=== PATIENT | male | born 1985 | race African-American/Black ===

== ENCOUNTER 2021-05-26 10:49 | Inpatient (IN) | payer BC ==
[2021-05-26] MEDS ORDERED: Sodium Chloride 0.9% 2.5 ML Syringe FLUSH PRN ×2 (11:11→19:05)
[2021-05-26] MEDS ORDERED: Sodium Chloride 0.9% 10 ML Syringe FLUSH PRN ×2 (11:11→19:05)
--- NOTE | 2021-05-26 11:15 | EDM.PDOC ---
ED HPI GENERAL MEDICAL PROBLEM - General Chief Complaint: Abdominal Pain Stated Complaint: STOMACH PAIN Time Seen by Provider: 05/26/21 10:51 Source of Information: Reports: Patient History Limitations: Reports: No Limitations - History of Present Illness INITIAL COMMENTS - FREE TEXT/NARRATIVE: HISTORY AND PHYSICAL: History of present illness: Patient is a 35-year-old male who presents to the ED today with concern of periumbilical abdominal pain that has been ongoing since yesterday. Patient describes it as sharp in nature and states that the pain is worse with movement and better when he sits still or lays still. Patient states that he also feels bloated and feels like he has a "balloon that is going to pop ". Patient denies any abdominal surgeries. Patient states that he does have prediabetes but he has never been diagnosed with diabetes and not on any medications. Patient denies any other health history or any other symptoms or concerns. Patient denies fever, chills, chest pain, shortness of breath, or cough. Denies headache, neck stiff ness, change in vision, syncope, or near syncope. Denies nausea, vomiting,, diarrhea, constipation, or dysuria. Has not noted any blood in urine or stool. Patient has been eating and drinking appropriately. Review of systems: As per history of present illness and below otherwise all systems reviewed and negative. Past medical history: As per history of present illness and as reviewed below otherwise noncontributory. Surgical history: As per history of present illness and as reviewed below otherwise noncontr ibutory. Social history: See social history for further information Family history: As per history of present illness and as reviewed below otherwise noncontributory. Physical exam: General: Patient is alert, oriented, and in no acute distress. Patient sitting comfortably on exam table. Vitals stable and reviewed by me HEENT: Atraumatic, normocephalic, pupils equal and reactive bilaterally, negative for conjunctival pallor or scleral icterus, mucous membranes moist, TMs normal bilaterally, throat clear, neck supple, nontender, trachea midline. No drooling or trismus noted. No meningeal signs. No hot potato voice noted. Lungs: Clear to auscultation, breath sounds equal bilaterally, chest nontender. Heart: S1S2, regular rate and rhythm without overt murmur Abdomen: Soft, nondistended, mild to moderate periumbilical tenderness without guarding, negative rebound, negative Sutherland sign. Negative for masses or hepatosplenomegaly. Negative for costovertebral tenderness. Pelvis: Stable nontender. Genitourinary: Deferred. Rectal: Deferred. Skin: Intact, warm, dry. No lesions or rashes noted. Extremities: Atraumatic, negative for cords or calf pain. Neurovascular unremarkable. Neuro: Awake, alert, oriented. Cranial nerves II through XII unremarkable. Cerebellum unremarkable. Motor and sensory unremarkable throughout. Exam nonfocal. Notes: Patient is a 35-year-old male who presents emergency room today secondary to periumbilical abdominal pain that began yesterday. Upon arrival to the ED, patient is vitally stable and well-appearing on exam but is noted to have some mild to moderate periumbilical tenderness on exam. Mild derangements of CBC and CMP unremarkable. Urinalysis clear Abdominal pelvic CT scan shows acute appendicitis. I did call and speak to the general surgeon on-call, Dr. Mott, and thoroughly discussed patient's case. She has come in to personally see and evaluate the patient. See her official consult note for further treatment and disposition specifics. Will transfer to the operating room to Dr. Mott Voices understanding and is agreeable to plan of care. Denies any further questions or concerns at this time. Diagnostics: EKG, CBC, CMP, UA, lipase, abdominal pelvic CT scan with contrast, COVID-19 Therapeutics: Patient was offered Toradol and morphine but he declines. LAZARO Hodge Impression: Acute appendicitis Plan: Transfer to the operating room to Dr. Rene, general surgery Definitive disposition and diagnosis as appropriate pending reevaluation and review of above. Abdomen Pain Score (Numeric/FACES): 5 - Related Data Allergies Allergy/AdvReac Type Severity Reaction Status Date / Time No Known Allergies Allergy Verified 05/26/21 11:06 Home Meds: Home Meds . [No Known Home Meds] 05/26/21 [History] ED ROS GENERAL - Review of Systems Review Of Systems: Comprehensive ROS is negative, except as noted in HPI. ED EXAM, GENERAL - Physical Exam Exam: See Below (see dictation) Course - Vital Signs Last Recorded V/S: Last Vital Signs Temp 97.5 F 05/26/21 11:06 Pulse 76 05/26/21 14:07 Resp 16 05/26/21 14:07 BP 127/76 05/26/21 14:07 Pulse Ox 98 05/26/21 14:07 - Orders/Labs/Meds Orders: Active Orders 24 hr Category Date Time Status Admission Status [Patient Status] [ADT] Stat ADT 05/26/21 14:28 Active EKG Documentation Completion [RC] STAT Care 05/26/21 11:12 Active Notify Provider Consults [RC] ASDIRECTED Care 05/26/21 13:56 Active Consult to Physician [CONS] Stat Cons 05/26/21 13:56 Active Lactated Ringers [Ringers, Lactated] 1,000 ml Med 05/26/21 14:00 Active IV .BOLUS Sodium Chloride 0.9% [Saline Flush] Med 05/26/21 11:11 Active 10 ml FLUSH ASDIRECTED PRN Sodium Chloride 0.9% [Saline Flush] Med 05/26/21 11:11 Active 2.5 ml FLUSH ASDIRECTED PRN Saline Lock Insert [OM.PC] Stat Oth 05/26/21 11:11 Ordered Medication Orders Lactated Ringer's (Ringers, Lactated) 1,000 mls @ 999 mls/hr IV .BOLUS ONE Stop: 05/26/21 15:00 Last Admin: 05/26/21 14:02 Dose: 999 mls/hr Documented by: [id number] Sodium Chloride (Sodium Chloride 0.9% 10 Ml Syringe) 10 ml FLUSH ASDIRECTED PRN PRN Reason: Keep Vein Open Last Admin: 05/26/21 11:40 Dose: 10 ml Documented by: [id number] Sodium Chloride (Sodium Chloride 0.9% 2.5 Ml Syringe) 2.5 ml FLUSH ASDIRECTED PRN PRN Reason: Keep Vein Open Last Admin: 05/26/21 11:40 Dose: 2.5 ml Documented by: [id number] Labs: Laboratory Tests 05/26/21 05/26/21 05/26/21 Range/Units 11:20 11:22 11:22 WBC 10.86 (4.0-11.0) K/uL RBC 5.56 (4.50-5.90) M/uL Hgb 14.1 (13.0-17.0) g/dL Hct 41.0 (38.0-50.0) % MCV 73.7 L (80.0-98.0) fL MCH 25.4 L (27.0-32.0) pg MCHC 34.4 (31.0-37.0) g/dL RDW Std Deviation 37.2 (28.0-62.0) fl RDW Coeff of Jeff 14 (11.0-15.0) % Plt Count 148 L (150-400) K/uL MPV 10.60 (7.40-12.00) fL Neut % (Auto) 69.5 (48.0-80.0) % Lymph % (Auto) 21.1 (16.0-40.0) % [place] % (Auto) 9.0 (0.0-15.0) % Eos % (Auto) 0.3 (0.0-7.0) % Baso % (Auto) 0.1 (0.0-1.5) % Neut # (Auto) 7.6 H (1.4-5.7) K/uL Lymph # (Auto) 2.3 (0.6-2.4) K/uL [place] # (Auto) 1.0 H (0.0-0.8) K/uL Eos # (Auto) 0.0 (0.0-0.7) K/uL Baso # (Auto) 0.0 (0.0-0.1) K/uL Nucleated RBC % 0.0 /100WBC Nucleated RBCs # 0 K/uL Sodium 142 (136-148) mmol/L Potassium 4.0 (3.5-5.1) mmol/L Chloride 103 (98-107) mmol/L Carbon Dioxide 27.3 (21.0-32.0) mmol/L BUN 13 (7.0-18.0) mg/dL Creatinine 1.1 (0.8-1.3) mg/dL Est Cr Clr Drug Dosing 95.86 mL/min Estimated GFR (MDRD) > 60.0 ml/min Glucose 90 (74-106) mg/dL Calcium 8.8 (8.5-10.1) mg/dL Total Bilirubin 0.6 (0.2-1.0) mg/dL AST 18 (15-37) IU/L ALT 37 (14-63) IU/L Alkaline Phosphatase 95 (46-116) U/L Total Protein 8.0 (6.4-8.2) g/dL Albumin 4.0 (3.4-5.0) g/dL Globulin 4.0 (2.6-4.0) g/dL Albumin/Globulin Ratio 1.0 (0.9-1.6) Lipase 32 L (73-393) U/L Urine Color DARK YELLOW Urine Appearance CLEAR Urine pH 6.0 (5.0-8.0) Ur Specific [place] 1.025 (1.001-1.035) Urine Protein NEGATIVE (NEGATIVE) mg/dL Urine Glucose (UA) NEGATIVE (NEGATIVE) mg/dL Urine Ketones NEGATIVE (NEGATIVE) mg/dL Urine Occult Blood NEGATIVE (NEGATIVE) Urine Nitrite NEGATIVE (NEGATIVE) Urine Bilirubin NEGATIVE (NEGATIVE) Urine Urobilinogen 0.2 (<2.0) EU/dL Ur Leukocyte Esterase NEGATIVE (NEGATIVE) SARS-CoV-2 RNA (BRANDI) (NEGATIVE) 05/26/21 Range/Units 13:50 WBC (4.0-11.0) K/uL RBC (4.50-5.90) M/uL Hgb (13.0-17.0) g/dL Hct (38.0-50.0) % MCV (80.0-98.0) fL MCH (27.0-32.0) pg MCHC (31.0-37.0) g/dL RDW Std Deviation (28.0-62.0) fl RDW Coeff of Jeff (11.0-15.0) % Plt Count (150-400) K/uL MPV (7.40-12.00) fL Neut % (Auto) (48.0-80.0) % Lymph % (Auto) (16.0-40.0) % [place] % (Auto) (0.0-15.0) % Eos % (Auto) (0.0-7.0) % Baso % (Auto) (0.0-1.5) % Neut # (Auto) (1.4-5.7) K/uL Lymph # (Auto) (0.6-2.4) K/uL [place] # (Auto) (0.0-0.8) K/uL Eos # (Auto) (0.0-0.7) K/uL Baso # (Auto) (0.0-0.1) K/uL Nucleated RBC % /100WBC Nucleated RBCs # K/uL Sodium (136-148) mmol/L Potassium (3.5-5.1) mmol/L Chloride (98-107) mmol/L Carbon Dioxide (21.0-32.0) mmol/L BUN (7.0-18.0) mg/dL Creatinine (0.8-1.3) mg/dL Est Cr Clr Drug Dosing mL/min Estimated GFR (MDRD) ml/min Glucose (74-106) mg/dL Calcium (8.5-10.1) mg/dL Total Bilirubin (0.2-1.0) mg/dL AST (15-37) IU/L ALT (14-63) IU/L Alkaline Phosphatase (46-116) U/L Total Protein (6.4-8.2) g/dL Albumin (3.4-5.0) g/dL Globulin (2.6-4.0) g/dL Albumin/Globulin Ratio (0.9-1.6) Lipase (73-393) U/L Urine Color Urine Appearance Urine pH (5.0-8.0) Ur Specific [place] (1.001-1.035) Urine Protein (NEGATIVE) mg/dL Urine Glucose (UA) (NEGATIVE) mg/dL Urine Ketones (NEGATIVE) mg/dL Urine Occult Blood (NEGATIVE) Urine Nitrite (NEGATIVE) Urine Bilirubin (NEGATIVE) Urine Urobilinogen (<2.0) EU/dL Ur Leukocyte Esterase (NEGATIVE) SARS-CoV-2 RNA (BRANDI) NEGATIVE (NEGATIVE) Meds: Medications Generic Name Dose Route Start Last Admin Trade Name Freq PRN Reason Stop Dose Admin Lactated Ringer's 1,000 mls @ 999 mls/hr 05/26/21 14:00 05/26/21 14:02 Ringers, Lactated IV 05/26/21 15:00 999 mls/hr .BOLUS ONE Administration Sodium Chloride 10 ml 05/26/21 11:11 05/26/21 11:40 Sodium Chloride 0.9% 10 Ml Syringe FLUSH 10 ml ASDIRECTED PRN Administration Keep Vein Open Sodium Chloride 2.5 ml 05/26/21 11:11 05/26/21 11:40 Sodium Chloride 0.9% 2.5 Ml Syringe FLUSH 2.5 ml ASDIRECTED PRN Administration Keep Vein Open Discontinued Medications Generic Name Dose Route Start Last Admin Trade Name Freq PRN Reason Stop Dose Admin Albumin Human 12.5 gm 05/26/21 13:50 Albumin 25% 12.5 Gm/50 Ml Bag IV 05/26/21 13:51 ONETIME ONE Piperacillin Sod/Tazobactam 50 mls @ 100 mls/hr 05/26/21 13:53 05/26/21 14:02 Sod 3.375 gm/ Sodium Chloride IV 05/26/21 14:22 100 mls/hr ONETIME ONE Administration Sodium Chloride 1,000 mls @ 999 mls/hr 05/26/21 13:54 05/26/21 14:17 Normal Saline IV 05/26/21 14:54 Not Given STAT ONE Iopamidol 100 ml 05/26/21 12:54 05/26/21 12:55 Iopamidol 755 Mg/Ml 500 Ml Multipack Bottle IVPUSH 05/26/21 12:55 100 ml ONETIME ONE Administration Ondansetron HCl 4 mg 05/26/21 14:09 05/26/21 14:22 Ondansetron 4 Mg/2 Ml Sdv IVPUSH 05/26/21 14:10 4 mg ONETIME ONE Administration Ondansetron HCl Confirm 05/26/21 14:10 05/26/21 14:16 Ondansetron 4 Mg/2 Ml Sdv Administered 05/26/21 14:11 Not Given Dose 4 mg .ROUTE .STK-MED ONE Departure - Departure Time of Disposition: 14:51 Disposition: Still A Patient 30 Clinical Impression: Acute appendicitis Qualifiers: Acute appendicitis type: unspecified acute appendicitis type Qualified Code(s): K35.80 - Unspecified acute appendicitis - Discharge Information Sepsis Event Note (ED) - Evaluation Sepsis Screening Result: No Definite Risk - Focused Exam Vital Signs: Vital Signs Temp Pulse Resp BP Pulse Ox 05/26/21 14:07 76 16 127/76 98 05/26/21 13:10 71 16 118/72 99 05/26/21 12:15 74 16 142/83 H 97 05/26/21 11:06 97.5 F 84 16 122/81 97 - My Orders Last 24 Hours: My Active Orders 05/26/21 11:11 Sodium Chloride 0.9% [Saline Flush] 10 ml FLUSH ASDIRECTED PRN Sodium Chloride 0.9% [Saline Flush] 2.5 ml FLUSH ASDIRECTED PRN Saline Lock Insert [OM.PC] Stat 05/26/21 11:12 EKG Documentation Completion [RC] STAT 05/26/21 13:56 Notify Provider Consults [RC] ASDIRECTED Consult to Physician [CONS] Stat 05/26/21 14:00 Lactated Ringers [Ringers, Lactated] 1,000 ml IV .BOLUS 05/26/21 14:28 Admission Status [Patient Status] [ADT] Stat - Assessment/Plan Last 24 Hours: My Active Orders 05/26/21 11:11 Sodium Chloride 0.9% [Saline Flush] 10 ml FLUSH ASDIRECTED PRN Sodium Chloride 0.9% [Saline Flush] 2.5 ml FLUSH ASDIRECTED PRN Saline Lock Insert [OM.PC] Stat 05/26/21 11:12 EKG Documentation Completion [RC] STAT 05/26/21 13:56 Notify Provider Consults [RC] ASDIRECTED Consult to Physician [CONS] Stat 05/26/21 14:00 Lactated Ringers [Ringers, Lactated] 1,000 ml IV .BOLUS 05/26/21 14:28 Admission Status [Patient Status] [ADT] Stat
--- NOTE | 2021-05-26 11:22 | PCM.SN.2 ---
- Free Text/Narrative Note: EKG sinus rhythm heart rate 80 RI [address] elevation normal QRS no prior for comparison impression no obvious injury
[2021-05-26 12:04] LABS: BLOOD UREA NITROGEN,BUN 13 mg/dL (7.0-18.0); CARBON DIOXIDE,CO2 27.3 mmol/L (21.0-32.0); CHLORIDE,CL 103 mmol/L (98-107); GLUCOSE RANDOM 90 mg/dL (74-106); LIPASE 32 U/L (73-393); SODIUM,NA 142 mmol/L (136-148)
[2021-05-26] MEDS ORDERED: Iopamidol 755 MG/ML 500 ML Multipack Bottle IVPUSH ONE (12:54)
[2021-05-26] MEDS ORDERED: Albumin 25% 12.5 GM/50 ML Bag IV ONE (13:50)
--- NOTE | 2021-05-26 13:51 | CT ---
Indication: Periumbilical and right lower quadrant pain for 1 day. Technique: Multiple contiguous axial images were obtained along with the symphysis pubis without intravenous contrast enhancement. Please note that all CT scans at this facility use dose modulation, iterative reconstruction, and/or weight-based dosing when appropriate to reduce radiation dose to as low as reasonably achievable. Comparison: None Findings: Left basilar atelectasis is identified. Heart is normal in size no pericardial effusion is identified. The liver, spleen, gallbladder, pancreas, adrenals, and kidneys are normal. No intrahepatic biliary ductal dilatation is identified. In the pelvis, the urinary bladder is normal. The prostate gland is grossly normal. The small and large bowel are normal in caliber. The appendix is markedly enlarged, measuring up to 2 cm in size. Thickening of the wall of the appendix is identified. Fat stranding is identified surrounding the appendix. Numerous enlarged right lower quadrant lymph nodes are identified. A small amount of free fluid is identified within the pelvis. No definite free air is identified. The aorta is normal in caliber. No lytic or blastic lesions of the spine are identified. Impression: Findings consistent with an appendicitis. These findings were called to Jaci Ordonze at the time of this dictation. Please note that all CT scans at this facility use dose modulation, iterative reconstruction, and/or weight-based dosing when appropriate to reduce radiation dose to as low as reasonably achievable. Dictated by Kourtney Casas MD @ 05/26/2021 1:49:[address] Kourtney Casas @ May 26 2021 1:49PM
[2021-05-26] MEDS ORDERED: Piperacillin/Tazobactam 3.375 GM in Sodium Chloride 0.9% 50 ML IV ONE (13:53)
[2021-05-26] MEDS ORDERED: Sodium Chloride 0.9% 1,000 ML IV ONE (13:54)
[2021-05-26] MEDS ORDERED: Lactated Ringers 1,000 ML IV ONE (14:00)
[2021-05-26] MEDS ORDERED: Ondansetron 4 MG/2 ML SDV IVPUSH ONE (14:09)
[2021-05-26] MEDS ORDERED: Ondansetron 4 MG/2 ML SDV ONE ×2 (14:10→15:01)
--- NOTE | 2021-05-26 14:44 | PCM.HP.2 ---
H&P History of Present Illness - General Date of Service: 05/26/21 Admit Problem/Dx: Admission Diagnosis/Problem Admission Diagnosis/Problem Appendicitis Source of Information: Patient History Limitations: Reports: No Limitations - History of Present Illness Initial Comments - Free Text/Narative: Patient is a 35 year old male who presents with acute appendicitis. He developed pain yesterday. It was located around his umbilicus. The pain persisted and this morning he developed nausea and vomiting. He denies fevers or chills. The pain is better this morning. He presented to the ER. His vitals were stable. WBC was upper limits of normal. He had a CT scan of the abdomen and pelvis which showed a large umbilical hernia as well as a 2 cm dilated appendix with inflammatory changes consistent with acute appendicitis Abdomen Pain Score (Numeric/FACES): 5 - Related Data Allergies/Adverse Reactions: Allergies Allergy/AdvReac Type Severity Reaction Status Date / Time No Known Allergies Allergy Verified 05/26/21 11:06 Home Medications: Home Meds . [No Known Home Meds] 05/26/21 [History] Past Medical History - Past Health History Medical/Surgical History: Denies Medical/Surgical History - Infectious Disease History Infectious Disease History: Reports: None Social & Family History - Tobacco Use Tobacco Use Status *Q: Never Tobacco User - Caffeine Use Caffeine Use: Reports: None - Recreational Drug Use Recreational Drug Use: No H&P Review of Systems - Review of Systems: Review Of Systems: Comprehensive ROS is negative, except as noted in HPI. Exam - Exam Exam: See Below - Vital Signs Vital Signs: Last Vital Signs Temp 36.4 C 05/26/21 11:06 Pulse 76 05/26/21 14:07 Resp 16 05/26/21 14:07 BP 127/76 05/26/21 14:07 Pulse Ox 98 05/26/21 14:07 Weight: 99.79 kg - Exam Quality Assessment: Supplemental Oxygen General: Alert, Oriented HEENT: Conjunctiva Clear, Mucosa Moist & [place], Posterior Pharynx Clear Neck: Supple Lungs: Clear to Auscultation, Normal Respiratory Effort Cardiovascular: Regular Rate, Regular Rhythm GI/Abdominal Exam: Soft, Non-Tender, No Distention, No Mass Back Exam: Normal Inspection, Full Range of Motion Extremities: Normal Inspection, Normal Range of Motion Skin: Warm, Dry, Intact Neuro Extensive - Mental Status: Alert, Oriented x3 - Patient Data Lab Results Last 24 hrs: Laboratory Results - last 24 hr 05/26/21 05/26/21 05/26/21 Range/Units 11:20 11:22 11:22 WBC 10.86 (4.0-11.0) K/uL RBC 5.56 (4.50-5.90) M/uL Hgb 14.1 (13.0-17.0) g/dL Hct 41.0 (38.0-50.0) % MCV 73.7 L (80.0-98.0) fL MCH 25.4 L (27.0-32.0) pg MCHC 34.4 (31.0-37.0) g/dL RDW Std Deviation 37.2 (28.0-62.0) fl RDW Coeff of Jeff 14 (11.0-15.0) % Plt Count 148 L (150-400) K/uL MPV 10.60 (7.40-12.00) fL Neut % (Auto) 69.5 (48.0-80.0) % Lymph % (Auto) 21.1 (16.0-40.0) % [place] % (Auto) 9.0 (0.0-15.0) % Eos % (Auto) 0.3 (0.0-7.0) % Baso % (Auto) 0.1 (0.0-1.5) % Neut # (Auto) 7.6 H (1.4-5.7) K/uL Lymph # (Auto) 2.3 (0.6-2.4) K/uL [place] # (Auto) 1.0 H (0.0-0.8) K/uL Eos # (Auto) 0.0 (0.0-0.7) K/uL Baso # (Auto) 0.0 (0.0-0.1) K/uL Nucleated RBC % 0.0 /100WBC Nucleated RBCs # 0 K/uL Sodium 142 (136-148) mmol/L Potassium 4.0 (3.5-5.1) mmol/L Chloride 103 (98-107) mmol/L Carbon Dioxide 27.3 (21.0-32.0) mmol/L BUN 13 (7.0-18.0) mg/dL Creatinine 1.1 (0.8-1.3) mg/dL Est Cr Clr Drug Dosing 95.86 mL/min Estimated GFR (MDRD) > 60.0 ml/min Glucose 90 (74-106) mg/dL Calcium 8.8 (8.5-10.1) mg/dL Total Bilirubin 0.6 (0.2-1.0) mg/dL AST 18 (15-37) IU/L ALT 37 (14-63) IU/L Alkaline Phosphatase 95 (46-116) U/L Total Protein 8.0 (6.4-8.2) g/dL Albumin 4.0 (3.4-5.0) g/dL Globulin 4.0 (2.6-4.0) g/dL Albumin/Globulin Ratio 1.0 (0.9-1.6) Lipase 32 L (73-393) U/L Urine Color DARK YELLOW Urine Appearance CLEAR Urine pH 6.0 (5.0-8.0) Ur Specific [place] 1.025 (1.001-1.035) Urine Protein NEGATIVE (NEGATIVE) mg/dL Urine Glucose (UA) NEGATIVE (NEGATIVE) mg/dL Urine Ketones NEGATIVE (NEGATIVE) mg/dL Urine Occult Blood NEGATIVE (NEGATIVE) Urine Nitrite NEGATIVE (NEGATIVE) Urine Bilirubin NEGATIVE (NEGATIVE) Urine Urobilinogen 0.2 (<2.0) EU/dL Ur Leukocyte Esterase NEGATIVE (NEGATIVE) Result Diagrams: 05/26/21 11:22 05/26/21 11:22 Sepsis Event Note - Evaluation Sepsis Screening Result: No Definite Risk - Focused Exam Vital Signs: Vital Signs Temp Pulse Resp BP Pulse Ox 05/26/21 14:07 76 16 127/76 98 05/26/21 13:10 71 16 118/72 99 05/26/21 12:15 74 16 142/83 H 97 05/26/21 11:06 36.4 C 84 16 122/81 97 - Problem List (1) Appendicitis SNOMED Code(s): 44249734 ICD Code: K37 - UNSPECIFIED APPENDICITIS Status: Acute Current Visit: Yes (2) Umbilical hernia SNOMED Code(s): 216599913 ICD Code: K42.9 - UMBILICAL HERNIA WITHOUT OBSTRUCTION OR GANGRENE Status: Acute Current Visit: Yes Problem List Initiated/Reviewed/Updated: Yes Orders Last 24hrs: Active Orders 24 hr Category Date Time Status Admission Status [Patient Status] [ADT] Stat ADT 05/26/21 14:28 Active EKG Documentation Completion [RC] STAT Care 05/26/21 11:12 Active Notify Provider Consults [RC] ASDIRECTED Care 05/26/21 13:56 Active Consult to Physician [CONS] Stat Cons 05/26/21 13:56 Active CORONAVIRUS COVID-19 BRANDI [MOLEC] Stat Lab 05/26/21 13:50 Received Lactated Ringers [Ringers, Lactated] 1,000 ml Med 05/26/21 14:00 Active IV .BOLUS Sodium Chloride 0.9% [Saline Flush] Med 05/26/21 11:11 Active 10 ml FLUSH ASDIRECTED PRN Sodium Chloride 0.9% [Saline Flush] Med 05/26/21 11:11 Active 2.5 ml FLUSH ASDIRECTED PRN Saline Lock Insert [OM.PC] Stat Oth 05/26/21 11:11 Ordered Medication Orders Lactated Ringer's (Ringers, Lactated) 1,000 mls @ 999 mls/hr IV .BOLUS ONE Stop: 05/26/21 15:00 Last Admin: 05/26/21 14:02 Dose: 999 mls/hr Documented by: [id number] Sodium Chloride (Sodium Chloride 0.9% 10 Ml Syringe) 10 ml FLUSH ASDIRECTED PRN PRN Reason: Keep Vein Open Last Admin: 05/26/21 11:40 Dose: 10 ml Documented by: [id number] Sodium Chloride (Sodium Chloride 0.9% 2.5 Ml Syringe) 2.5 ml FLUSH ASDIRECTED PRN PRN Reason: Keep Vein Open Last Admin: 05/26/21 11:40 Dose: 2.5 ml Documented by: [id number] Assessment/Plan Comment:: The patient and I discussed the pathophysiology of acute appendicitis. The treatment for this is appendectomy. I will attempt this laparoscopically but convert to open should I be unable to perform it safely. His CT is concerning for a possible ruptured appendix given the degree of inflammation and dilation. We discussed the treatment course for ruptured vs non-ruptured appendicitis. If I am unable to perform the surgery laparoscopic I will convert to open. I ex plained the risks including bleeding infection or damage to surrounding structures. He verbalized understanding and wishes to proceed.
[2021-05-26] MEDS ORDERED: Octyl 2-Cyanoacrylate 1 Tube ONE (14:58)
[2021-05-26] MEDS ORDERED: Bupivacaine 0.5% 10 ML SDV ONE (14:59)
[2021-05-26] MEDS ORDERED: fentaNYL 250 MCG/5 ML SDV ONE (15:00)
[2021-05-26] MEDS ORDERED: Propofol 200 MG/20 ML SDV ONE (15:00)
[2021-05-26] MEDS ORDERED: Midazolam 1 MG/ML 2 ML SDV ONE (15:00)
[2021-05-26] MEDS ORDERED: Glycopyrrolate 0.2 MG/ML SDV ONE (15:01)
[2021-05-26] MEDS ORDERED: Sugammadex Sodium 200 MG/2 ML VIAL ONE ×2 (15:01→17:39)
[2021-05-26] MEDS ORDERED: Lidocaine 2% 5 ML SDV ONE (15:01)
[2021-05-26] MEDS ORDERED: Ketorolac 30 MG/ML SDV ONE (15:01)
[2021-05-26] MEDS ORDERED: Rocuronium Bromide 50 MG/5 ML Syringe ONE ×2 (15:01→16:17)
[2021-05-26] MEDS ORDERED: fentaNYL 100 MCG/2 ML SDV IVPUSH PRN (15:24)
[2021-05-26] MEDS ORDERED: Acetaminophen 1,000 MG in Premix Bag 1 BAG IV PRN (15:24)
--- NOTE | 2021-05-26 15:24 | PCM.PREANE ---
Preanesthetic Assessment - Anesthesia/Transfusion/Family Hx Anesthesia History: No Prior Anesthesia Family History of Anesthesia Reaction: No - Review of Systems General: No Symptoms Pulmonary: No Symptoms Cardiovascular: No Symptoms Gastrointestinal: Abdominal Pain, Nausea Neurological: No Symptoms Other: Reports: None - Physical Assessment NPO Status Date: 05/26/21 NPO Status Time: 00:05 Vital Signs: Last Vital Signs Temp 36.4 C 05/26/21 11:06 Pulse 68 05/26/21 15:22 Resp 16 05/26/21 15:22 BP 113/80 05/26/21 15:22 Pulse Ox 98 05/26/21 15:22 Height: 1.78 m Weight: 99.79 kg ASA Class: 1E Dentition: Reports: Broken Tooth/Teeth (Wide chip noted in #8.) - Lab Values: Laboratory Last Values WBC 10.86 K/uL (4.0-11.0) 05/26/21 11: RBC 5.56 M/uL (4.50-5.90) 05/26/21 11:22 Hgb 14.1 g/dL (13.0-17.0) 05/26/21 11:22 Hct 41.0 % (38.0-50.0) 05/26/21 11:22 MCV 73.7 fL (80.0-98.0) L 05/26/21 11:22 MCH 25.4 pg (27.0-32.0) L 05/26/21 11:22 MCHC 34.4 g/dL (31.0-37.0) 05/26/21 11:22 RDW Std Deviation 37.2 fl (28.0-62.0) 05/26/21 11:22 RDW Coeff of Jeff 14 % (11.0-15.0) 05/26/21 11:22 Plt Count 148 K/uL (150-400) L 05/26/21 11:22 MPV 10.60 fL (7.40-12.00) 05/26/21 11:22 Neut % (Auto) 69.5 % (48.0-80.0) 05/26/21 11:22 Lymph % (Auto) 21.1 % (16.0-40.0) 05/26/21 11:22 [place] % (Auto) 9.0 % (0.0-15.0) 05/26/21 11:22 Eos % (Auto) 0.3 % (0.0-7.0) 05/26/21 11:22 Baso % (Auto) 0.1 % (0.0-1.5) 05/26/21 11:22 Neut # (Auto) 7.6 K/uL (1.4-5.7) H 05/26/21 11:22 Lymph # (Auto) 2.3 K/uL (0.6-2.4) 05/26/21 11:22 [place] # (Auto) 1.0 K/uL (0.0-0.8) H 05/26/21 11:22 Eos # (Auto) 0.0 K/uL (0.0-0.7) 05/26/21 11:22 Baso # (Auto) 0.0 K/uL (0.0-0.1) 05/26/21 11:22 Nucleated RBC % 0.0 /100WBC 05/26/21 11:22 Nucleated RBCs # 0 K/uL 05/26/21 11:22 Sodium 142 mmol/L (136-148) 05/26/21 11:22 Potassium 4.0 mmol/L (3.5-5.1) 05/26/21 11:22 Chloride 103 mmol/L (98-107) 05/26/21 11:22 Carbon Dioxide 27.3 mmol/L (21.0-32.0) 05/26/21 11:22 BUN 13 mg/dL (7.0-18.0) 05/26/21 11:22 Creatinine 1.1 mg/dL (0.8-1.3) 05/26/21 11:22 Est Cr Clr Drug Dosing 95.86 mL/min 05/26/21 11:22 Estimated GFR (MDRD) > 60.0 ml/min 05/26/21 11:22 Glucose 90 mg/dL (74-106) 05/26/21 11:22 Calcium 8.8 mg/dL (8.5-10.1) 05/26/21 11:22 Total Bilirubin 0.6 mg/dL (0.2-1.0) 05/26/21 11:22 AST 18 IU/L (15-37) 05/26/21 11:22 ALT 37 IU/L (14-63) 05/26/21 11:22 Alkaline Phosphatase 95 U/L (46-116) 05/26/21 11:22 Total Protein 8.0 g/dL (6.4-8.2) 05/26/21 11:22 Albumin 4.0 g/dL (3.4-5.0) 05/26/21 11:22 Globulin 4.0 g/dL (2.6-4.0) 05/26/21 11:22 Albumin/Globulin Ratio 1.0 (0.9-1.6) 05/26/21 11:22 Lipase 32 U/L (73-393) L 05/26/21 11:22 Urine Color DARK YELLOW 05/26/21 11:20 Urine Appearance CLEAR 05/26/21 11:20 Urine pH 6.0 (5.0-8.0) 05/26/21 11:20 Ur Specific [place] 1.025 (1.001-1.035) 05/26/21 11:20 Urine Protein NEGATIVE mg/dL (NEGATIVE) 05/26/21 11:20 Urine Glucose (UA) NEGATIVE mg/dL (NEGATIVE) 05/26/21 11:20 Urine Ketones NEGATIVE mg/dL (NEGATIVE) 05/26/21 11:20 Urine Occult Blood NEGATIVE (NEGATIVE) 05/26/21 11:20 Urine Nitrite NEGATIVE (NEGATIVE) 05/26/21 11:20 Urine Bilirubin NEGATIVE (NEGATIVE) 05/26/21 11:20 Urine Urobilinogen 0.2 EU/dL (<2.0) 05/26/21 11:20 Ur Leukocyte Esterase NEGATIVE (NEGATIVE) 05/26/21 11:20 SARS-CoV-2 RNA (BRANDI) NEGATIVE (NEGATIVE) 05/26/21 13:50 - Allergies Allergies/Adverse Reactions: Allergies Allergy/AdvReac Type Severity Reaction Status Date / Time No Known Allergies Allergy Verified 05/26/21 11:06 - Acknowledgements Anesthesia Type Planned: General Anesthesia Pt an Appropriate Candidate for the Planned Anesthesia: Yes Alternatives and Risks of Anesthesia Discussed w Pt/Guardian: Yes Pt/Guardian Understands and Agrees with Anesthesia Plan: Yes PreAnesthesia Questionnaire - Past Health History Medical/Surgical History: Denies Medical/Surgical History - Infectious Disease History Infectious Disease History: Reports: None - SUBSTANCE USE Tobacco Use Status *Q: Never Tobacco User Recreational Drug Use History: No - HOME MEDS Home Medications: Home Meds . [No Known Home Meds] 05/26/21 [History] - CURRENT (IN HOUSE) MEDS Current Meds: Current Medications Sodium Chloride (Sodium Chloride 0.9% 10 Ml Syringe) 10 ml FLUSH ASDIRECTED PRN PRN Reason: Keep Vein Open Last Admin: 05/26/21 11:40 Dose: 10 ml Documented by: Sodium Chloride (Sodium Chloride 0.9% 2.5 Ml Syringe) 2.5 ml FLUSH ASDIRECTED PRN PRN Reason: Keep Vein Open Last Admin: 05/26/21 11:40 Dose: 2.5 ml Documented by: Discontinued Medications Albumin Human (Albumin 25% 12.5 Gm/50 Ml Bag) 12.5 gm IV ONETIME ONE Stop: 05/26/21 13:51 Bupivacaine HCl (Bupivacaine 0.5% 10 Ml Sdv) Confirm Administered Dose 10 ml .ROUTE .STK-MED ONE Stop: 05/26/21 15:00 Fentanyl (Fentanyl 250 Mcg/5 Ml Sdv) Confirm Administered Dose 250 mcg .ROUTE .STK-MED ONE Stop: 05/26/21 15:01 Glycopyrrolate (Glycopyrrolate 0.2 Mg/Ml Sdv) Confirm Administered Dose 0.2 mg .ROUTE .STK-MED ONE Stop: 05/26/21 15:02 Piperacillin Sod/Tazobactam (Sod 3.375 gm/ Sodium Chloride) 50 mls @ 100 mls/hr IV ONETIME ONE Stop: 05/26/21 14:22 Last Admin: 05/26/21 14:02 Dose: 100 mls/hr Documented by: Sodium Chloride (Normal Saline) 1,000 mls @ 999 mls/hr IV STAT ONE Stop: 05/26/21 14:54 Last Admin: 05/26/21 14:17 Dose: Not Given Documented by: Lactated Ringer's (Ringers, Lactated) 1,000 mls @ 999 mls/hr IV .BOLUS ONE Stop: 05/26/21 15:00 Last Admin: 05/26/21 14:02 Dose: 999 mls/hr Documented by: Iopamidol (Iopamidol 755 Mg/Ml 500 Ml Multipack Bottle) 100 ml IVPUSH ONETIME ONE Stop: 05/26/21 12:55 Last Admin: 05/26/21 12:55 Dose: 100 ml Documented by: Ketorolac Tromethamine (Ketorolac 30 Mg/Ml Sdv) Confirm Administered Dose 30 mg .ROUTE .ST-MED ONE Stop: 05/26/21 15:02 Lidocaine (Lidocaine 2% 5 Ml Sdv) Confirm Administered Dose 5 ml .ROUTE .R[facility]-MED ONE Stop: 05/26/21 15:02 Midazolam HCl (Midazolam 1 Mg/Ml 2 Ml Sdv) Confirm Administered Dose 2 mg .ROUTE .ST-MED ONE Stop: 05/26/21 15:01 Octyl Cyanoacrylate (Octyl 2-Cyanoacrylate 1 Tube) Confirm Administered Dose 1 applic .ROUTE .[facility] ONE Stop: 05/26/21 14:59 Ondansetron HCl (Ondansetron 4 Mg/2 Ml Sdv) 4 mg IVPUSH ONETIME ONE Stop: 05/26/21 14:10 Last Admin: 05/26/21 14:22 Dose: 4 mg Documented by: Ondansetron HCl (Ondansetron 4 Mg/2 Ml Sdv) Confirm Administered Dose 4 mg .ROUTE .[facility]-MED ONE Stop: 05/26/21 14:11 Last Admin: 05/26/21 14:16 Dose: Not Given Documented by: Ondansetron HCl (Ondansetron 4 Mg/2 Ml Sdv) Confirm Administered Dose 4 mg .ROUTE .[facility] ONE Stop: 05/26/21 15:02 Propofol (Propofol 200 Mg/20 Ml Sdv) Confirm Administered Dose 200 mg .ROUTE .[facility]-MED ONE Stop: 05/26/21 15:01 Rocuronium [place] (Rocuronium [place] 50 Mg/5 Ml Syringe) Confirm Administered Dose 50 mg .ROUTE .[facility]-MED ONE Stop: 05/26/21 15:02 Sugammadex Sodium (Sugammadex Sodium 200 Mg/2 Ml Vial) Confirm Administered Dose 200 mg .ROUTE .[facility]-MED ONE Stop: 05/26/21 15:02
[2021-05-26] MEDS ORDERED: HYDROmorphone 2 MG/ML Syringe ONE (16:41)
[2021-05-26] MEDS ORDERED: ceFAZolin 1 GM Vial ONE (16:44)
[2021-05-26] MEDS ORDERED: HYDROmorphone 1 MG/ML Syringe IVPUSH PRN (19:05)
[2021-05-26] MEDS ORDERED: Ondansetron 4 MG/2 ML SDV IVPUSH PRN (19:05)
[2021-05-26] MEDS ORDERED: Acetaminophen/oxyCODONE 325-5 MG Tab PO PRN (19:05)
[2021-05-26] MEDS ORDERED: Sodium Chloride 0.9% 10 ML SDV IV PRN (19:05)
--- NOTE | 2021-05-26 19:15 | PCM.POSTAN ---
POST ANESTHESIA ASSESSMENT - MENTAL STATUS Mental Status: Alert - VITAL SIGNS Vital Signs: Last Vital Signs Temp 37.2 C 05/26/21 18:56 Pulse 83 05/26/21 19:11 Resp 15 05/26/21 19:11 BP 102/58 L 05/26/21 19:11 Pulse Ox 100 05/26/21 19:11 - RESPIRATORY Respiratory Status: Respiratory Rate WNL - CARDIOVASCULAR CV Status: Pulse Rate WNL - GASTROINTESTINAL GI Status: No Symptoms - POST OP HYDRATION Hydration Status: Adequate & Stable
--- NOTE | 2021-05-26 19:30 | PCM.OPNOTE ---
- General Post-Op/Procedure Note Date of Surgery/Procedure: 05/26/21 Operative Procedure(s): Laparoscopic converted to open appendectomy Findings: Inflamed and grossly necrotic appendix with small abscess. Densely adhered to the retrocecal area and terminal ileum Pre Op Diagnosis: Acute appendicitis Post-Op Diagnosis: same Anesthesia Technique: General ET Tube Primary Surgeon: Sue Mott Fluid Replacement, Intraop: 1,700 Output, Urine Amount: 425 EBL in mLs: 50 Condition: Stable Free Text/Narrative:: Intake & Output 05/26/21 05/26/21 05/26/21 06:59 14:59 22:59 Output Total 425 Balance -425
[2021-05-26] MEDS ORDERED: oxyCODONE 5 MG Tab PO PRN (19:32)
--- NOTE | 2021-05-26 19:38 | PCM48HPAN ---
Post Anesthesia Note - EVALUATION WITHIN 48HRS OF ANESTHETIC Vital Signs in Normal Range: Yes Patient Participated in Evaluation: Yes Respiratory Function Stable: Yes Airway Patent: Yes Cardiovascular Function Stable: Yes Hydration Status Stable: Yes Pain Control Satisfactory: Yes Nausea and Vomiting Control Satisfactory: Yes Mental Status Recovered: Yes Vital Signs: Last Vital Signs Temp 37.2 C 05/26/21 18:56 Pulse 89 05/26/21 19:26 Resp 25 H 05/26/21 19:26 BP 120/69 05/26/21 19:26 Pulse Ox 94 L 05/26/21 19:26
[2021-05-26] MEDS: Sodium Chloride 0.9% 1,000 ML IV SCH (19:45)
--- NOTE | 2021-05-26 20:06 | OR ---
SURGEON: SUE MOTT MD DATE OF PROCEDURE: 05/26/2021 PREOPERATIVE DIAGNOSIS: Acute appendicitis. POSTOPERATIVE DIAGNOSIS: Acute appendicitis with localized peritonitis, gangrene, and abscess. PROCEDURE PERFORMED: Laparoscopic converted to open appendectomy. PRIMARY SURGEON: Sue Mott MD ANESTHESIA: General endotracheal anesthesia. FLUIDS: 1700 mL crystalloid. ESTIMATED BLOOD LOSS: 50 mL. URINE OUTPUT: 425 mL. FINDINGS: Retrocecal appendix which was encased around the terminal ileum. A small locally-contained abscess associated with a gangrenous appendix. COMPLICATIONS: None. INDICATIONS: The patient is a 35-year-old male who presented to the emergency room today with abdominal pain, nausea, and vomiting. Workup revealed acute appendicitis. The patient and I discussed the need for an appendectomy. I explained the expected perioperative course for perforated versus nonperforated appendicitis. I explained that I would attempt this laparoscopically, but convert to open should I be unable to perform it safely. The patient and I discussed the risks of bleeding, infection, or damage to surrounding structures including perforation. He verbalized understanding and wished to proceed. PROCEDURE IN DETAIL: The patient was brought to the OR and placed on the OR table in supine position. A time-out was completed verifying the patient's name, age, date of , allergies, and procedure to be performed. General endotracheal anesthesia was induced. The left arm was tucked to the patient's side and a Palomo catheter placed. The abdomen was prepped and draped in usual standard fashion. I anesthetized an area 2 fingerbreadths below the left subcostal margin in the midclavicular line with 0.5% Marcaine plain. An 11 blade was used to make an incision in this area. A 5 mm optical trocar was used to gain entry into the left upper quadrant under direct visualization. A 5 mm, 30-degree scope was inserted and the abdomen was insufflated. I inspected the area underneath my initial trocar placement. No damage to surrounding structures was noted. A 5 mm trocar was placed just left and lateral to the umbilicus under direct visualization. A 12 mm trocar was placed in the left lower quadrant under direct visualization. The patient was placed into reverse Trendelenburg position and airplaned slightly to the left. I turned my attention to the right lower quadrant. I identified the cecum. Overlying the cecum was a loop of terminal ileum. I attempted to lift this. However, the intestines and associated mesentery were densely adhered to the underlying structures. A Kittner and a suction device were used to sweep this bowel away. I was eventually able to identify a grossly inflamed and enlarged appendix. The appendiceal mesentery was densely thickened and enlarged. The appendix was so thick that it was difficult to grasp with a laparoscopic grasper. I attempted to use blunt dissection with the suction device and the Kittner to free the appendix from the retroperitoneal attachments. I was unable to do so. A small abscess cavity was encountered. The purulent material was then suctioned out. Given how thickened and inflamed things were, I made the decision to convert to open to continue my dissection in a safer manner. The 12 mm trocar was removed and the fascia at the left lower quadrant port site was closed with an interrupted 0 Vicryl suture using a Ray-Daniel device. The 5 mm trocars were removed as well. The abdomen was left insufflated. I anesthetized the right lower quadrant over McBurney's point with 0.5% Marcaine plain. A 15 blade was used to make a right lower quadrant oblique incision over McBurney's point. Electrocautery was used to dissect down to the level of the fascia. The fascia was dissected down to the peritoneum. The peritoneum was elevated with hemostats and incised sharply with the Metzenbaum scissors. Entry into the abdomen was confirmed with a release of the CO2. I then extended my incision both medially and laterally. Retractors were then put in place. I inserted my hand into the abdomen. I quickly identified the cecum. I followed the tenia down to the base of the cecum. I could feel a large phlegmon medially to the cecum. This phlegmon was located both medially and retrocecally. It then traversed underneath the terminal ileum. Some of the surrounding small bowel was encased around the phlegmon. Using finger dissection, I was able to dissect the inflammatory attachments. I then delivered the tip of the appendix anteriorly. The appendiceal mesentery and appendix itself were grossly inflamed. The appendiceal body appeared to have some areas of necrosis. Using a hemostat, I the attachments of the appendix to the surrounding appendiceal mesentery. I would create windows and then used a Harmonic scalpel device to take down any attachments. The appendiceal mesentery was partially necrotic in areas as well. I continued this dissection from distal to proximal. More proximally, the appendix had adhesions to surrounding tissue which were taken down using blunt dissection with a Kittner. Eventually, I was able to separate the appendix from the appendiceal mesentery in its entirety. The base of the appendix appeared healthy. It did not appear to be involved in the process. A 45 mm stapling device was then brought into the field. I stapled and transected across the base of the appendix using a 45 mm blue load of coco. The appendix was then placed on the back table. The right lower quadrant was copiously irrigated with normal saline mixed with an Ancef solution. I inspected my operative field. It was hemostatic. The staple line appeared to be intact. A 19-Thai Giacomo drain was brought through the right lower quadrant just medial to my incision and the tip of the drain was placed along the distal right paracolic gutter down to the pelvis and brought through the drain site. The drain was then secured to the skin using a 2-0 silk suture. Before closure, I inspected my terminal ileum and cecum. They appeared to be intact. There was some inflammation around the terminal ileum, but it was widely patent and there was no evidence of damage to surrounding structures. I closed the peritoneum with a running 0 Vicryl suture. The layers of the abdominal wall were then closed with running 0 Vicryl sutures as well. The more superficial subcutaneous fat layer was closed with a running 3-0 Vicryl stitch. I made sure to irrigate my wound with the normal saline Ancef solution and changed my gloves. The skin was then closed with coco. My laparoscopic port sites were closed with skin coco as well. Sterile dressings were then applied. The patient tolerated the procedure well and was extubated and taken to PACU in stable condition. All counts were complete and correct at the end of the case. ARCELIA / JORGE /[id number]
[2021-05-26] MEDS: Cyclobenzaprine 5 MG Tab PO SCH (21:00)
[2021-05-26] MEDS: Piperacillin/Tazobactam 3.375 GM in Sodium Chloride 0.9% 50 ML IV SCH (21:03)
[2021-05-27] MEDS: Acetaminophen 1,000 MG in Premix Bag 1 BAG IV SCH ×2 (00:22→03:07)
[2021-05-27] MEDS: Ketorolac 30 MG/ML SDV IVPUSH SCH ×5 (00:46→18:26)
[2021-05-27] MEDS: Piperacillin/Tazobactam 3.375 GM in Sodium Chloride 0.9% 50 ML IV SCH ×4 (03:05→20:00)
[2021-05-27] MEDS: Cyclobenzaprine 5 MG Tab PO SCH ×3 (03:11→18:32)
[2021-05-27] MEDS ORDERED: Acetaminophen 1,000 MG in Premix Bag 1 BAG IV SCH (06:00)
[2021-05-27] MEDS: Sodium Chloride 0.9% 1,000 ML IV SCH (06:04)
[2021-05-27 06:11] LABS: BLOOD UREA NITROGEN,BUN 9 mg/dL (7.0-18.0); CARBON DIOXIDE,CO2 27.5 mmol/L (21.0-32.0); CHLORIDE,CL 105 mmol/L (98-107); GLUCOSE RANDOM 107 mg/dL (74-106); POTASSIUM,K 4.1 mmol/L (3.5-5.1); SODIUM,NA 141 mmol/L (136-148)
[2021-05-27] MEDS: Heparin Sodium 5,000 Units/ML Vial SUBCUT SCH ×2 (08:36→18:27)
[2021-05-27] MEDS: Polyethylene Glycol 3350 Powder 17 GM Packet PO SCH (08:37)
--- NOTE | 2021-05-27 09:27 | PCM.PN ---
- General Info Date of Service: 05/27/21 Subjective Update: Patient is feeling well this morning. He is sore when getting up out of bed or moving. Drain was 70 mls output since surgery. Output appears serosanguineous. Vital signs stable overnight. Patient is tolerating clear liquids with no nausea or vomiting. He has not passed any gas yet. He does complain of feeling bloated. He has been burping. - Review of Systems General: Reports: No Symptoms HEENT: Reports: No Symptoms Pulmonary: Reports: No Symptoms Cardiovascular: Reports: No Symptoms Gastrointestinal: Reports: Abdominal Pain (along incisions). Denies: Flatus, Nausea, Vomiting Genitourinary: Reports: No Symptoms Musculoskeletal: Reports: No Symptoms Skin: Reports: No Symptoms - Patient Data Vitals - Most Recent: Last Vital Signs Temp 36.8 C 05/27/21 08:23 Pulse 60 05/27/21 08:23 Resp 13 05/27/21 08:23 BP 98/57 L 05/27/21 08:23 Pulse Ox 97 05/27/21 08:23 Weight - Most Recent: 99.79 kg I&O - Last 24 Hours: Intake & Output 05/26/21 05/27/21 05/27/21 22:59 06:59 14:59 Intake Total 3700 1972 Output Total 1275 950 Balance 2425 1022 Lab Results Last 24 Hours: Laboratory Results - last 24 hr 05/26/21 05/26/21 05/26/21 Range/Units 11:20 11:22 11:22 WBC 10.86 (4.0-11.0) K/uL RBC 5.56 (4.50-5.90) M/uL Hgb 14.1 (13.0-17.0) g/dL Hct 41.0 (38.0-50.0) % MCV 73.7 L (80.0-98.0) fL MCH 25.4 L (27.0-32.0) pg MCHC 34.4 (31.0-37.0) g/dL RDW Std Deviation 37.2 (28.0-62.0) fl RDW Coeff of Jeff 14 (11.0-15.0) % Plt Count 148 L (150-400) K/uL MPV 10.60 (7.40-12.00) fL Neut % (Auto) 69.5 (48.0-80.0) % Lymph % (Auto) 21.1 (16.0-40.0) % [place] % (Auto) 9.0 (0.0-15.0) % Eos % (Auto) 0.3 (0.0-7.0) % Baso % (Auto) 0.1 (0.0-1.5) % Neut # (Auto) 7.6 H (1.4-5.7) K/uL Lymph # (Auto) 2.3 (0.6-2.4) K/uL [place] # (Auto) 1.0 H (0.0-0.8) K/uL Eos # (Auto) 0.0 (0.0-0.7) K/uL Baso # (Auto) 0.0 (0.0-0.1) K/uL Nucleated RBC % 0.0 /100WBC Nucleated RBCs # 0 K/uL Sodium 142 (136-148) mmol/L Potassium 4.0 (3.5-5.1) mmol/L Chloride 103 (98-107) mmol/L Carbon Dioxide 27.3 (21.0-32.0) mmol/L BUN 13 (7.0-18.0) mg/dL Creatinine 1.1 (0.8-1.3) mg/dL Est Cr Clr Drug Dosing 95.86 mL/min Estimated GFR (MDRD) > 60.0 ml/min Glucose 90 (74-106) mg/dL Calcium 8.8 (8.5-10.1) mg/dL Total Bilirubin 0.6 (0.2-1.0) mg/dL AST 18 (15-37) IU/L ALT 37 (14-63) IU/L Alkaline Phosphatase 95 (46-116) U/L Total Protein 8.0 (6.4-8.2) g/dL Albumin 4.0 (3.4-5.0) g/dL Globulin 4.0 (2.6-4.0) g/dL Albumin/Globulin Ratio 1.0 (0.9-1.6) Lipase 32 L (73-393) U/L Urine Color DARK YELLOW Urine Appearance CLEAR Urine pH 6.0 (5.0-8.0) Ur Specific [place] 1.025 (1.001-1.035) Urine Protein NEGATIVE (NEGATIVE) mg/dL Urine Glucose (UA) NEGATIVE (NEGATIVE) mg/dL Urine Ketones NEGATIVE (NEGATIVE) mg/dL Urine Occult Blood NEGATIVE (NEGATIVE) Urine Nitrite NEGATIVE (NEGATIVE) Urine Bilirubin NEGATIVE (NEGATIVE) Urine Urobilinogen 0.2 (<2.0) EU/dL Ur Leukocyte Esterase NEGATIVE (NEGATIVE) SARS-CoV-2 RNA (BRANDI) (NEGATIVE) 05/26/21 05/27/21 05/27/21 Range/Units 13:50 05:20 05:20 WBC 9.76 (4.0-11.0) K/uL RBC 4.96 (4.50-5.90) M/uL Hgb 12.2 L (13.0-17.0) g/dL Hct 37.0 L (38.0-50.0) % MCV 74.6 L (80.0-98.0) fL MCH 24.6 L (27.0-32.0) pg MCHC 33.0 (31.0-37.0) g/dL RDW Std Deviation 38.1 (28.0-62.0) fl RDW Coeff of Jeff 14 (11.0-15.0) % Plt Count 141 L (150-400) K/uL MPV 10.70 (7.40-12.00) fL Neut % (Auto) (48.0-80.0) % Lymph % (Auto) (16.0-40.0) % [place] % (Auto) (0.0-15.0) % Eos % (Auto) (0.0-7.0) % Baso % (Auto) (0.0-1.5) % Neut # (Auto) (1.4-5.7) K/uL Lymph # (Auto) (0.6-2.4) K/uL [place] # (Auto) (0.0-0.8) K/uL Eos # (Auto) (0.0-0.7) K/uL Baso # (Auto) (0.0-0.1) K/uL Nucleated RBC % 0.0 /100WBC Nucleated RBCs # 0 K/uL Sodium 141 (136-148) mmol/L Potassium 4.1 (3.5-5.1) mmol/L Chloride 105 (98-107) mmol/L Carbon Dioxide 27.5 (21.0-32.0) mmol/L BUN 9 (7.0-18.0) mg/dL Creatinine 1.1 (0.8-1.3) mg/dL Est Cr Clr Drug Dosing 96.09 mL/min Estimated GFR (MDRD) > 60.0 ml/min Glucose 107 H (74-106) mg/dL Calcium 8.0 L (8.5-10.1) mg/dL Total Bilirubin (0.2-1.0) mg/dL AST (15-37) IU/L ALT (14-63) IU/L Alkaline Phosphatase (46-116) U/L Total Protein (6.4-8.2) g/dL Albumin (3.4-5.0) g/dL Globulin (2.6-4.0) g/dL Albumin/Globulin Ratio (0.9-1.6) Lipase (73-393) U/L Urine Color Urine Appearance Urine pH (5.0-8.0) Ur Specific [place] (1.001-1.035) Urine Protein (NEGATIVE) mg/dL Urine Glucose (UA) (NEGATIVE) mg/dL Urine Ketones (NEGATIVE) mg/dL Urine Occult Blood (NEGATIVE) Urine Nitrite (NEGATIVE) Urine Bilirubin (NEGATIVE) Urine Urobilinogen (<2.0) EU/dL Ur Leukocyte Esterase (NEGATIVE) SARS-CoV-2 RNA (BRANDI) NEGATIVE (NEGATIVE) Med Orders - Current: Current Medications Cyclobenzaprine HCl (Cyclobenzaprine 5 Mg Tab) 5 mg PO Q8H [facility] Last Admin: 05/27/21 03:11 Dose: 5 mg Documented by: Heparin Sodium (Porcine) (Heparin Sodium 5,000 Units/Ml Vial) 5,000 units SUBCUT Q8H [facility] Last Admin: 05/27/21 08:36 Dose: 5,000 units Documented by: Hydromorphone HCl (Hydromorphone 1 Mg/Ml Syringe) 0.5 mg IVPUSH Q1H PRN PRN Reason: Pain (severe 7-10) Last Admin: 05/26/21 21:25 Dose: 0.5 mg Documented by: Piperacillin Sod/Tazobactam (Sod 3.375 gm/ Sodium Chloride) 50 mls @ 100 mls/hr IV Q6H [facility] Last Admin: 05/27/21 08:36 Dose: 100 mls/hr Documented by: Ketorolac Tromethamine (Ketorolac 30 Mg/Ml Sdv) 30 mg IVPUSH Q6H [facility] Last Admin: 05/27/21 05:59 Dose: 30 mg Documented by: Ondansetron HCl (Ondansetron 4 Mg/2 Ml Sdv) 4 mg IVPUSH Q6H PRN PRN Reason: Nausea/Vomiting Oxycodone/Acetaminophen (Acetaminophen/Oxycodone 325-10 Mg Tab) 2 tab PO Q4H PRN PRN Reason: Abdominal Pain Polyethylene Glycol (Polyethylene Glycol 3350 Powder 17 Gm Packet) 17 gm PO DAILY [facility] Last Admin: 05/27/21 08:37 Dose: 17 gm Documented by: Sodium Chloride (Sodium Chloride 0.9% 10 Ml Syringe) 10 ml FLUSH ASDIRECTED PRN PRN Reason: Keep Vein Open Last Admin: 05/26/21 11:40 Dose: 10 ml Documented by: Sodium Chloride (Sodium Chloride 0.9% 2.5 Ml Syringe) 2.5 ml FLUSH ASDIRECTED PRN PRN Reason: Keep Vein Open Last Admin: 05/26/21 11:40 Dose: 2.5 ml Documented by: Sodium Chloride (Sodium Chloride 0.9% 10 Ml Syringe) 10 ml FLUSH ASDIRECTED PRN PRN Reason: Keep Vein Open Sodium Chloride (Sodium Chloride 0.9% 2.5 Ml Syringe) 2.5 ml FLUSH ASDIRECTED PRN PRN Reason: Keep Vein Open Sodium Chloride (Sodium Chloride 0.9% 10 Ml Sdv) 10 ml IV ASDIRECTED PRN PRN Reason: IV Use Discontinued Medications Albumin Human (Albumin 25% 12.5 Gm/50 Ml Bag) 12.5 gm IV ONETIME ONE Stop: 05/26/21 13:51 Bupivacaine HCl (Bupivacaine 0.5% 10 Ml Sdv) Confirm Administered Dose 10 ml .ROUTE .STK-MED ONE Stop: 05/26/21 15:00 Cefazolin Sodium (Cefazolin 1 Gm Vial) Confirm Administered Dose 1 gm .ROUTE .STK-MED ONE Stop: 05/26/21 16:45 Fentanyl (Fentanyl 250 Mcg/5 Ml Sdv) Confirm Administered Dose 250 mcg .ROUTE .STK-MED ONE Stop: 05/26/21 15:01 Fentanyl (Fentanyl 100 Mcg/2 Ml Sdv) 50 mcg IVPUSH Q5M PRN PRN Reason: Pain Glycopyrrolate (Glycopyrrolate 0.2 Mg/Ml Sdv) Confirm Administered Dose 0.2 mg .ROUTE .STK-MED ONE Stop: 05/26/21 15:02 Hydromorphone HCl (Hydromorphone 2 Mg/Ml Syringe) Confirm Administered Dose 2 mg .ROUTE .STK-MED ONE Stop: 05/26/21 16:42 Piperacillin Sod/Tazobactam (Sod 3.375 gm/ Sodium Chloride) 50 mls @ 100 mls/hr IV ONETIME ONE Stop: 05/26/21 14:22 Last Admin: 05/26/21 14:02 Dose: 100 mls/hr Documented by: Sodium Chloride (Normal Saline) 1,000 mls @ 999 mls/hr IV STAT ONE Stop: 05/26/21 14:54 Last Admin: 05/26/21 14:17 Dose: Not Given Documented by: Lactated Ringer's (Ringers, Lactated) 1,000 mls @ 999 mls/hr IV .BOLUS ONE Stop: 05/26/21 15:00 Last Admin: 05/26/21 14:02 Dose: 999 mls/hr Documented by: Acetaminophen 1,000 mg/ Premix 100 mls @ 400 mls/hr IV Q6H PRN PRN Reason: Pain Acetaminophen (Ofirmev 1000 Mg/100 Ml) Confirm Administered Dose 100 mls @ as directed .ROUTE .STK-MED ONE Stop: 05/26/21 18:36 Sodium Chloride (Normal Saline) 1,000 mls @ 125 mls/hr IV ASDIRECTED [facility] Last Admin: 05/27/21 06:04 Dose: 125 mls/hr Documented by: Acetaminophen 1,000 mg/ Premix 100 mls @ 400 mls/hr IV Q6H [facility] Last Admin: 05/27/21 03:07 Dose: Not Given Documented by: Acetaminophen 1,000 mg/ Premix 100 mls @ 400 mls/hr IV Q6H [facility] Last Admin: 05/27/21 06:05 Dose: 400 mls/hr Documented by: Iopamidol (Iopamidol 755 Mg/Ml 500 Ml Multipack Bottle) 100 ml IVPUSH ONETIME ONE Stop: 05/26/21 12:55 Last Admin: 05/26/21 12:55 Dose: 100 ml Documented by: Ketorolac Tromethamine (Ketorolac 30 Mg/Ml Sdv) Confirm Administered Dose 30 mg .ROUTE .STK-MED ONE Stop: 05/26/21 15:02 Ketorolac Tromethamine (Ketorolac 30 Mg/Ml Sdv) 30 mg IVPUSH Q6H [facility] Stop: 05/31/21 20:01 Last Admin: 05/27/21 03:07 Dose: Not Given Documented by: Lidocaine (Lidocaine 2% 5 Ml Sdv) Confirm Administered Dose 5 ml .ROUTE .STK-MED ONE Stop: 05/26/21 15:02 Midazolam HCl (Midazolam 1 Mg/Ml 2 Ml Sdv) Confirm Administered Dose 2 mg .ROUTE .STK-MED ONE Stop: 05/26/21 15:01 Octyl Cyanoacrylate (Octyl 2-Cyanoacrylate 1 Tube) Confirm Administered Dose 0 applic .ROUTE .STK-MED ONE Stop: 05/26/21 14:59 Ondansetron HCl (Ondansetron 4 Mg/2 Ml Sdv) 4 mg IVPUSH ONETIME ONE Stop: 05/26/21 14:10 Last Admin: 05/26/21 14:22 Dose: 4 mg Documented by: Ondansetron HCl (Ondansetron 4 Mg/2 Ml Sdv) Confirm Administered Dose 4 mg .ROUTE .STK-MED ONE Stop: 05/26/21 14:11 Last Admin: 05/26/21 14:16 Dose: Not Given Documented by: Ondansetron HCl (Ondansetron 4 Mg/2 Ml Sdv) Confirm Administered Dose 4 mg .ROUTE .STK-MED ONE Stop: 05/26/21 15:02 Oxycodone HCl (Oxycodone 5 Mg Tab) 10 mg PO Q4H PRN PRN Reason: Pain (moderate 4-6) Oxycodone/Acetaminophen (Acetaminophen/Oxycodone 325-5 Mg Tab) 2 tab PO Q4H PRN PRN Reason: Pain (moderate 4-6) Propofol (Propofol 200 Mg/20 Ml Sdv) Confirm Administered Dose 200 mg .ROUTE .STK-MED ONE Stop: 05/26/21 15:01 Rocuronium Amma (Rocuronium Amma 50 Mg/5 Ml Syringe) Confirm Administered Dose 50 mg .ROUTE .STK-MED ONE Stop: 05/26/21 15:02 Rocuronium Amma (Rocuronium Amma 50 Mg/5 Ml Syringe) Confirm Administered Dose 50 mg .ROUTE .STK-MED ONE Stop: 05/26/21 16:18 Sugammadex Sodium (Sugammadex Sodium 200 Mg/2 Ml Vial) Confirm Administered Dose 200 mg .ROUTE .STK-MED ONE Stop: 05/26/21 15:02 Sugammadex Sodium (Sugammadex Sodium 200 Mg/2 Ml Vial) Confirm Administered Dose 200 mg .ROUTE .STK-MED ONE Stop: 05/26/21 17:40 - Exam General: Alert, Oriented, Cooperative HEENT: Pupils Equal, Pupils Reactive Lungs: Normal Respiratory Effort Cardiovascular: Regular Rate GI/Abdominal Exam: Soft, Distended. No: Guarding, Rigid, Rebound, Tender Back Exam: Normal Inspection Extremities: Normal Inspection - Patient Data Lab Results Last 24 hrs: Laboratory Results - last 24 hr 05/26/21 05/26/21 05/26/21 Range/Units 11:20 11:22 11:22 WBC 10.86 (4.0-11.0) K/uL RBC 5.56 (4.50-5.90) M/uL Hgb 14.1 (13.0-17.0) g/dL Hct 41.0 (38.0-50.0) % MCV 73.7 L (80.0-98.0) fL MCH 25.4 L (27.0-32.0) pg MCHC 34.4 (31.0-37.0) g/dL RDW Std Deviation 37.2 (28.0-62.0) fl RDW Coeff of [place] 14 (11.0-15.0) % Plt Count 148 L (150-400) K/uL MPV 10.60 (7.40-12.00) fL Neut % (Auto) 69.5 (48.0-80.0) % Lymph % (Auto) 21.1 (16.0-40.0) % [place] % (Auto) 9.0 (0.0-15.0) % Eos % (Auto) 0.3 (0.0-7.0) % Baso % (Auto) 0.1 (0.0-1.5) % Neut # (Auto) 7.6 H (1.4-5.7) K/uL Lymph # (Auto) 2.3 (0.6-2.4) K/uL [place] # (Auto) 1.0 H (0.0-0.8) K/uL Eos # (Auto) 0.0 (0.0-0.7) K/uL Baso # (Auto) 0.0 (0.0-0.1) K/uL Nucleated RBC % 0.0 /100WBC Nucleated RBCs # 0 K/uL Sodium 142 (136-148) mmol/L Potassium 4.0 (3.5-5.1) mmol/L Chloride 103 (98-107) mmol/L Carbon Dioxide 27.3 (21.0-32.0) mmol/L BUN 13 (7.0-18.0) mg/dL Creatinine 1.1 (0.8-1.3) mg/dL Est Cr Clr Drug Dosing 95.86 mL/min Estimated GFR (MDRD) > 60.0 ml/min Glucose 90 (74-106) mg/dL Calcium 8.8 (8.5-10.1) mg/dL Total Bilirubin 0.6 (0.2-1.0) mg/dL AST 18 (15-37) IU/L ALT 37 (14-63) IU/L Alkaline Phosphatase 95 (46-116) U/L Total Protein 8.0 (6.4-8.2) g/dL Albumin 4.0 (3.4-5.0) g/dL Globulin 4.0 (2.6-4.0) g/dL Albumin/Globulin Ratio 1.0 (0.9-1.6) Lipase 32 L (73-393) U/L Urine Color DARK YELLOW Urine Appearance CLEAR Urine pH 6.0 (5.0-8.0) Ur Specific [place] 1.025 (1.001-1.035) Urine Protein NEGATIVE (NEGATIVE) mg/dL Urine Glucose (UA) NEGATIVE (NEGATIVE) mg/dL Urine Ketones NEGATIVE (NEGATIVE) mg/dL Urine Occult Blood NEGATIVE (NEGATIVE) Urine Nitrite NEGATIVE (NEGATIVE) Urine Bilirubin NEGATIVE (NEGATIVE) Urine Urobilinogen 0.2 (<2.0) EU/dL Ur Leukocyte Esterase NEGATIVE (NEGATIVE) SARS-CoV-2 RNA (BRANDI) (NEGATIVE) 05/26/21 05/27/21 05/27/21 Range/Units 13:50 05:20 05:20 WBC 9.76 (4.0-11.0) K/uL RBC 4.96 (4.50-5.90) M/uL Hgb 12.2 L (13.0-17.0) g/dL Hct 37.0 L (38.0-50.0) % MCV 74.6 L (80.0-98.0) fL MCH 24.6 L (27.0-32.0) pg MCHC 33.0 (31.0-37.0) g/dL RDW Std Deviation 38.1 (28.0-62.0) fl RDW Coeff of [place] 14 (11.0-15.0) % Plt Count 141 L (150-400) K/uL MPV 10.70 (7.40-12.00) fL Neut % (Auto) (48.0-80.0) % Lymph % (Auto) (16.0-40.0) % [place] % (Auto) (0.0-15.0) % Eos % (Auto) (0.0-7.0) % Baso % (Auto) (0.0-1.5) % Neut # (Auto) (1.4-5.7) K/uL Lymph # (Auto) (0.6-2.4) K/uL [place] # (Auto) (0.0-0.8) K/uL Eos # (Auto) (0.0-0.7) K/uL Baso # (Auto) (0.0-0.1) K/uL Nucleated RBC % 0.0 /100WBC Nucleated RBCs # 0 K/uL Sodium 141 (136-148) mmol/L Potassium 4.1 (3.5-5.1) mmol/L Chloride 105 (98-107) mmol/L Carbon Dioxide 27.5 (21.0-32.0) mmol/L BUN 9 (7.0-18.0) mg/dL Creatinine 1.1 (0.8-1.3) mg/dL Est Cr Clr Drug Dosing 96.09 mL/min Estimated GFR (MDRD) > 60.0 ml/min Glucose 107 H (74-106) mg/dL Calcium 8.0 L (8.5-10.1) mg/dL Total Bilirubin (0.2-1.0) mg/dL AST (15-37) IU/L ALT (14-63) IU/L Alkaline Phosphatase (46-116) U/L Total Protein (6.4-8.2) g/dL Albumin (3.4-5.0) g/dL Globulin (2.6-4.0) g/dL Albumin/Globulin Ratio (0.9-1.6) Lipase (73-393) U/L Urine Color Urine Appearance Urine pH (5.0-8.0) Ur Specific [place] (1.001-1.035) Urine Protein (NEGATIVE) mg/dL Urine Glucose (UA) (NEGATIVE) mg/dL Urine Ketones (NEGATIVE) mg/dL Urine Occult Blood (NEGATIVE) Urine Nitrite (NEGATIVE) Urine Bilirubin (NEGATIVE) Urine Urobilinogen (<2.0) EU/dL Ur Leukocyte Esterase (NEGATIVE) SARS-CoV-2 RNA (BRANDI) NEGATIVE (NEGATIVE) Result Diagrams: 05/27/21 05:20 05/27/21 05:20 Sepsis Event Note - Evaluation Sepsis Screening Result: No Definite Risk - Focused Exam Vital Signs: Vital Signs Temp Pulse Resp BP Pulse Ox 05/27/21 08:23 36.8 C 60 13 98/57 L 97 05/27/21 03:17 36.6 C 74 16 109/70 96 05/26/21 23:30 36.9 C 72 14 103/58 L 99 05/26/21 22:30 36.9 C 71 16 103/60 98 05/26/21 21:30 80 15 107/63 98 - Problem List & Annotations (1) Appendicitis SNOMED Code(s): 26371725 Code(s): K37 - UNSPECIFIED APPENDICITIS Status: Acute Current Visit: Yes (2) Umbilical hernia SNOMED Code(s): 496045963 Code(s): K42.9 - UMBILICAL HERNIA WITHOUT OBSTRUCTION OR GANGRENE Status: Acute Current Visit: Yes - Problem List Review Problem List Initiated/Reviewed/Updated: Yes - My Orders Last 24 Hours: My Active Orders 05/26/21 19:05 RT Incentive Spirometry [RC] Q1HWA Up ad Ruth [RC] ASDIRECTED HYDROmorphone [Dilaudid] 0.5 mg IVPUSH Q1H PRN Ondansetron [Zofran] 4 mg IVPUSH Q6H PRN Sodium Chloride 0.9% [Normal Saline] 10 ml IV ASDIRECTED PRN Sodium Chloride 0.9% [Saline Flush] 10 ml FLUSH ASDIRECTED PRN Sodium Chloride 0.9% [Saline Flush] 2.5 ml FLUSH ASDIRECTED PRN DVT/VTE Prophylaxis Reflex [OM.PC] Routine Peripheral IV Insertion Adult [OM.PC] Urgent Resuscitation Status Routine 05/26/21 19:06 Patient Status [ADT] Routine Intake and Output [RC] Q12H Oxygen Therapy [RC] PRN Vital Signs [RC] Q4H 05/26/21 19:07 Antiembolic Devices [RC] .Routine VTE/DVT Education [RC] PER UNIT ROUTINE 05/26/21 19:08 Sequential Compression Device [OM.PC] Per Unit Routine 05/26/21 19:30 Cyclobenzaprine [Flexeril] 5 mg PO Q8H 05/26/21 20:00 Piperacillin/Tazobactam [Piperacil-Tazobact] 3.375 gm Sodium Chloride 0.9% [Normal Saline] 50 ml IV Q6H 05/27/21 06:00 Ketorolac [Toradol] 30 mg IVPUSH Q6H 05/27/21 Breakfast Regular Diet [DIET] 05/27/21 09:00 Heparin Sodium 5,000 units SUBCUT Q8H polyethylene glycoL 3350 [MiraLAX] 17 gm PO DAILY 05/27/21 09:26 Acetaminophen/oxyCODONE [Percocet 325-10 MG] 2 tab PO Q4H PRN 05/28/21 05:11 CBC W/O DIFF,HEMOGRAM [HEME] AM 05/29/21 05:11 CBC W/O DIFF,HEMOGRAM [HEME] AM 05/30/21 05:11 CBC W/O DIFF,HEMOGRAM [HEME] AM 05/31/21 05:11 CBC W/O DIFF,HEMOGRAM [HEME] AM - Plan Plan:: Pain: Iv toradol scheduled. Prn percocet. D/C scheduled IV tylenol. Scheduled flexeril. CV/Pulm: stable. Encourage out of bed activity and incentive spirometry use. GI: Okay to advance diet to regular. Stop IV fluids. I encouraged the patient to eat small frequent meals until he starts passing flatus or has bowel movements. MiraLAX scheduled daily for bowel regimen. Encouraged patient to talk to nursing staff should he start to feel nauseated or feel like vomiting. Renal: Urine output adequate. BUN/creatinine stable. ID: Continue IV Zosyn until tomorrow morning. At that time I will transition him over to oral anabiotic's given that his appendix was perforated. Heme: Slight drop in hemoglobin likely due to intraoperative loss as well as dilutional effect from fluids. Platelets slightly low but stable. Prophylaxis: GIunnecessary given regular diet. DVTheparin 8000 mg sq 3 times a day.
[2021-05-27] MEDS: Acetaminophen/oxyCODONE 325-10 MG Tab PO PRN (15:38)
[2021-05-28] MEDS: Ketorolac 30 MG/ML SDV IVPUSH SCH ×4 (00:28→17:29)
[2021-05-28] MEDS: Heparin Sodium 5,000 Units/ML Vial SUBCUT SCH ×3 (00:29→17:30)
[2021-05-28] MEDS: Piperacillin/Tazobactam 3.375 GM in Sodium Chloride 0.9% 50 ML IV SCH (03:02)
[2021-05-28] MEDS: Cyclobenzaprine 5 MG Tab PO SCH (03:17)
[2021-05-28] MEDS: Polyethylene Glycol 3350 Powder 17 GM Packet PO SCH (08:32)
[2021-05-28] MEDS: Ciprofloxacin 500 MG Tab PO SCH ×2 (08:32→20:00)
[2021-05-28] MEDS: metroNIDAZOLE 250 MG Tab PO SCH ×3 (08:33→19:58)
[2021-05-28] MEDS: Bisacodyl 5 MG Tab PO SCH ×2 (08:43→19:58)
[2021-05-28] MEDS: Acetaminophen/oxyCODONE 325-10 MG Tab PO PRN (12:26)
--- NOTE | 2021-05-28 13:41 | PCM.SURGPN ---
- General Info Date of Service: 05/28/21 POD#: 2 Functional Status: Reports: Pain Controlled, Tolerating Diet, Ambulating, Urinating, Other (No flatus, feels bloated ). Denies: New Symptoms - Review of Systems General: Reports: No Symptoms HEENT: Reports: No Symptoms Pulmonary: Reports: No Symptoms Cardiovascular: Reports: No Symptoms Gastrointestinal: Reports: Constipation. Denies: Abdominal Pain, Flatus Genitourinary: Reports: No Symptoms Musculoskeletal: Reports: No Symptoms Skin: Reports: No Symptoms Neurological: Reports: No Symptoms - Patient Data Vitals - Most Recent: Last Vital Signs Temp 36.0 C L 05/28/21 10:56 Pulse 76 05/28/21 10:56 Resp 14 05/28/21 10:56 BP 111/84 05/28/21 10:56 Pulse Ox 100 05/28/21 10:56 Weight - Most Recent: 99.79 kg I&O - Last 24 Hours: Intake & Output 05/27/21 05/28/21 05/28/21 22:59 06:59 14:59 Intake Total 1170 950 Output Total 1690 550 Balance -520 400 Lab Results Last 24 Hrs: Laboratory Results - last 24 hr 05/28/21 Range/Units 05:35 WBC 7.30 (4.0-11.0) K/uL RBC 4.82 (4.50-5.90) M/uL Hgb 12.1 L (13.0-17.0) g/dL Hct 36.1 L (38.0-50.0) % MCV 74.9 L (80.0-98.0) fL MCH 25.1 L (27.0-32.0) pg MCHC 33.5 (31.0-37.0) g/dL RDW Std Deviation 38.3 (28.0-62.0) fl RDW Coeff of Jeff 14 (11.0-15.0) % Plt Count 140 L (150-400) K/uL MPV 11.10 (7.40-12.00) fL Nucleated RBC % 0.0 /100WBC Nucleated RBCs # 0 K/uL Med Orders - Current: Current Medications Bisacodyl (Bisacodyl 5 Mg Tab) 5 mg PO Q12H [facility] Last Admin: 05/28/21 08:43 Dose: 5 mg Documented by: Ciprofloxacin (Ciprofloxacin 500 Mg Tab) 500 mg PO BID [facility] Last Admin: 05/28/21 08:32 Dose: 500 mg Documented by: Heparin Sodium (Porcine) (Heparin Sodium 5,000 Units/Ml Vial) 5,000 units SUBCUT Q8H [facility] Last Admin: 05/28/21 08:32 Dose: 5,000 units Documented by: Hydromorphone HCl (Hydromorphone 1 Mg/Ml Syringe) 0.5 mg IVPUSH Q1H PRN PRN Reason: Pain (severe 7-10) Last Admin: 05/26/21 21:25 Dose: 0.5 mg Documented by: Ketorolac Tromethamine (Ketorolac 30 Mg/Ml Sdv) 30 mg IVPUSH Q6H [facility] Last Admin: 05/28/21 12:29 Dose: 30 mg Documented by: Metronidazole (Metronidazole 250 Mg Tab) 500 mg PO Q6H [facility] Last Admin: 05/28/21 13:32 Dose: 500 mg Documented by: Ondansetron HCl (Ondansetron 4 Mg/2 Ml Sdv) 4 mg IVPUSH Q6H PRN PRN Reason: Nausea/Vomiting Oxycodone/Acetaminophen (Acetaminophen/Oxycodone 325-10 Mg Tab) 2 tab PO Q4H PRN PRN Reason: Abdominal Pain Last Admin: 05/28/21 12:26 Dose: 2 tab Documented by: Polyethylene Glycol (Polyethylene Glycol 3350 Powder 17 Gm Packet) 17 gm PO DAILY [facility] Last Admin: 05/28/21 08:32 Dose: 17 gm Documented by: Sodium Chloride (Sodium Chloride 0.9% 10 Ml Syringe) 10 ml FLUSH ASDIRECTED PRN PRN Reason: Keep Vein Open Last Admin: 05/26/21 11:40 Dose: 10 ml Documented by: Sodium Chloride (Sodium Chloride 0.9% 2.5 Ml Syringe) 2.5 ml FLUSH ASDIRECTED PRN PRN Reason: Keep Vein Open Last Admin: 05/26/21 11:40 Dose: 2.5 ml Documented by: Sodium Chloride (Sodium Chloride 0.9% 10 Ml Syringe) 10 ml FLUSH ASDIRECTED PRN PRN Reason: Keep Vein Open Sodium Chloride (Sodium Chloride 0.9% 2.5 Ml Syringe) 2.5 ml FLUSH ASDIRECTED PRN PRN Reason: Keep Vein Open Sodium Chloride (Sodium Chloride 0.9% 10 Ml Sdv) 10 ml IV ASDIRECTED PRN PRN Reason: IV Use Discontinued Medications Albumin Human (Albumin 25% 12.5 Gm/50 Ml Bag) 12.5 gm IV ONETIME ONE Stop: 05/26/21 13:51 Bupivacaine HCl (Bupivacaine 0.5% 10 Ml Sdv) Confirm Administered Dose 10 ml .ROUTE .STK-MED ONE Stop: 05/26/21 15:00 Cefazolin Sodium (Cefazolin 1 Gm Vial) Confirm Administered Dose 1 gm .ROUTE .STK-MED ONE Stop: 05/26/21 16:45 Cyclobenzaprine HCl (Cyclobenzaprine 5 Mg Tab) 5 mg PO Q8H [facility] Last Admin: 05/28/21 03:17 Dose: Not Given Documented by: Fentanyl (Fentanyl 250 Mcg/5 Ml Sdv) Confirm Administered Dose 250 mcg .ROUTE .STK-MED ONE Stop: 05/26/21 15:01 Fentanyl (Fentanyl 100 Mcg/2 Ml Sdv) 50 mcg IVPUSH Q5M PRN PRN Reason: Pain Glycopyrrolate (Glycopyrrolate 0.2 Mg/Ml Sdv) Confirm Administered Dose 0.2 mg .ROUTE .STK-MED ONE Stop: 05/26/21 15:02 Hydromorphone HCl (Hydromorphone 2 Mg/Ml Syringe) Confirm Administered Dose 2 mg .ROUTE .STK-MED ONE Stop: 05/26/21 16:42 Piperacillin Sod/Tazobactam (Sod 3.375 gm/ Sodium Chloride) 50 mls @ 100 mls/hr IV ONETIME ONE Stop: 05/26/21 14:22 Last Admin: 05/26/21 14:02 Dose: 100 mls/hr Documented by: Sodium Chloride (Normal Saline) 1,000 mls @ 999 mls/hr IV STAT ONE Stop: 05/26/21 14:54 Last Admin: 05/26/21 14:17 Dose: Not Given Documented by: Lactated Ringer's (Ringers, Lactated) 1,000 mls @ 999 mls/hr IV .BOLUS ONE Stop: 05/26/21 15:00 Last Admin: 05/26/21 14:02 Dose: 999 mls/hr Documented by: Acetaminophen 1,000 mg/ Premix 100 mls @ 400 mls/hr IV Q6H PRN PRN Reason: Pain Acetaminophen (Ofirmev 1000 Mg/100 Ml) Confirm Administered Dose 100 mls @ as directed .ROUTE .STK-MED ONE Stop: 05/26/21 18:36 Sodium Chloride (Normal Saline) 1,000 mls @ 125 mls/hr IV ASDIRECTED [facility] Last Admin: 05/27/21 06:04 Dose: 125 mls/hr Documented by: Piperacillin Sod/Tazobactam (Sod 3.375 gm/ Sodium Chloride) 50 mls @ 100 mls/hr IV Q6H [facility] Last Admin: 05/28/21 03:02 Dose: 100 mls/hr Documented by: Acetaminophen 1,000 mg/ Premix 100 mls @ 400 mls/hr IV Q6H [facility] Last Admin: 05/27/21 03:07 Dose: Not Given Documented by: Acetaminophen 1,000 mg/ Premix 100 mls @ 400 mls/hr IV Q6H [facility] Last Admin: 05/27/21 06:05 Dose: 400 mls/hr Documented by: Iopamidol (Iopamidol 755 Mg/Ml 500 Ml Multipack Bottle) 100 ml IVPUSH ONETIME ONE Stop: 05/26/21 12:55 Last Admin: 05/26/21 12:55 Dose: 100 ml Documented by: Ketorolac Tromethamine (Ketorolac 30 Mg/Ml Sdv) Confirm Administered Dose 30 mg .ROUTE .STK-MED ONE Stop: 05/26/21 15:02 Ketorolac Tromethamine (Ketorolac 30 Mg/Ml Sdv) 30 mg IVPUSH Q6H [facility] Stop: 05/31/21 20:01 Last Admin: 05/27/21 03:07 Dose: Not Given Documented by: Lidocaine (Lidocaine 2% 5 Ml Sdv) Confirm Administered Dose 5 ml .ROUTE .STK-MED ONE Stop: 05/26/21 15:02 Midazolam HCl (Midazolam 1 Mg/Ml 2 Ml Sdv) Confirm Administered Dose 2 mg .ROUTE .STK-MED ONE Stop: 05/26/21 15:01 Octyl Cyanoacrylate (Octyl 2-Cyanoacrylate 1 Tube) Confirm Administered Dose 0 applic .ROUTE .STK-MED ONE Stop: 05/26/21 14:59 Ondansetron HCl (Ondansetron 4 Mg/2 Ml Sdv) 4 mg IVPUSH ONETIME ONE Stop: 05/26/21 14:10 Last Admin: 05/26/21 14:22 Dose: 4 mg Documented by: Ondansetron HCl (Ondansetron 4 Mg/2 Ml Sdv) Confirm Administered Dose 4 mg .ROUTE .STK-MED ONE Stop: 05/26/21 14:11 Last Admin: 05/26/21 14:16 Dose: Not Given Documented by: Ondansetron HCl (Ondansetron 4 Mg/2 Ml Sdv) Confirm Administered Dose 4 mg .ROUTE .STK-MED ONE Stop: 05/26/21 15:02 Oxycodone HCl (Oxycodone 5 Mg Tab) 10 mg PO Q4H PRN PRN Reason: Pain (moderate 4-6) Oxycodone/Acetaminophen (Acetaminophen/Oxycodone 325-5 Mg Tab) 2 tab PO Q4H PRN PRN Reason: Pain (moderate 4-6) Propofol (Propofol 200 Mg/20 Ml Sdv) Confirm Administered Dose 200 mg .ROUTE .STK-MED ONE Stop: 05/26/21 15:01 Rocuronium [place] (Rocuronium [place] 50 Mg/5 Ml Syringe) Confirm Administered Dose 50 mg .ROUTE .STK-MED ONE Stop: 05/26/21 15:02 Rocuronium [place] (Rocuronium [place] 50 Mg/5 Ml Syringe) Confirm Administered Dose 50 mg .ROUTE .STK-MED ONE Stop: 05/26/21 16:18 Sugammadex Sodium (Sugammadex Sodium 200 Mg/2 Ml Vial) Confirm Administered Dose 200 mg .ROUTE .STK-MED ONE Stop: 05/26/21 15:02 Sugammadex Sodium (Sugammadex Sodium 200 Mg/2 Ml Vial) Confirm Administered Dose 200 mg .ROUTE .STK-MED ONE Stop: 05/26/21 17:40 - Exam Wound/Incisions: Dressing Dry and Intact, Other (serous drainage from the RLQ drain ) Quality Assessment: Supplemental Oxygen General: Alert, Oriented HEENT: Pupils Equal, Pupils Reactive Lungs: Normal Respiratory Effort Cardiovascular: Regular Rate GI/Abdominal Exam: Soft, Non-Tender, No Mass, Distended Skin: Warm, Dry, Intact Neurological: No New Focal Deficit Psy/Mental Status: Alert, Normal Affect, Normal Mood Sepsis Event Note - Evaluation Sepsis Screening Result: No Definite Risk - Focused Exam Vital Signs: Vital Signs Temp Pulse Resp BP Pulse Ox 05/28/21 10:56 36.0 C L 76 14 111/84 100 05/28/21 08:00 36.4 C 86 14 112/65 95 05/28/21 03:49 37.0 C 80 16 112/66 97 - Problem List & Annotations (1) Appendicitis SNOMED Code(s): 64389063 Code(s): K37 - UNSPECIFIED APPENDICITIS Status: Acute Current Visit: Yes (2) Umbilical hernia SNOMED Code(s): 148698963 Code(s): K42.9 - UMBILICAL HERNIA WITHOUT OBSTRUCTION OR GANGRENE Status: Acute Current Visit: Yes - Problem List Review Problem List Initiated/Reviewed/Updated: Yes - My Orders Last 24 Hours: Active Orders 24 hr Category Date Time Status Ciprofloxacin [Ciprofloxacin HCl] Med 05/28/21 09:00 Active 500 mg PO BID bisacodyL [Dulcolax] Med 05/28/21 08:45 Active 5 mg PO Q12H [facility] Med 05/28/21 08:00 Active 500 mg PO Q6H Medication Orders Bisacodyl (Bisacodyl 5 Mg Tab) 5 mg PO Q12H [facility] Last Admin: 05/28/21 08:43 Dose: 5 mg Documented by: ARLETTE Ciprofloxacin (Ciprofloxacin 500 Mg Tab) 500 mg PO BID [facility] Last Admin: 05/28/21 08:32 Dose: 500 mg Documented by: ARLETTE Heparin Sodium (Porcine) (Heparin Sodium 5,000 Units/Ml Vial) 5,000 units SUBCUT Q8H [facility] Last Admin: 05/28/21 08:32 Dose: 5,000 units Documented by: Admin: 05/28/21 00:29 Dose: 5,000 units Documented by: Admin: 05/27/21 18:27 Dose: 5,000 units Documented by: Admin: 05/27/21 08:36 Dose: 5,000 units Documented by: ARLETTE Hydromorphone HCl (Hydromorphone 1 Mg/Ml Syringe) 0.5 mg IVPUSH Q1H PRN PRN Reason: Pain (severe 7-10) Last Admin: 05/26/21 21:25 Dose: 0.5 mg Documented by: MARIAN Ketorolac Tromethamine (Ketorolac 30 Mg/Ml Sdv) 30 mg IVPUSH Q6H [facility] Last Admin: 05/28/21 12:29 Dose: 30 mg Documented by: Admin: 05/28/21 05:53 Dose: 30 mg Documented by: Admin: 05/28/21 00:28 Dose: 30 mg Documented by: Admin: 05/27/21 18:26 Dose: 30 mg Documented by: Admin: 05/27/21 12:07 Dose: 30 mg Documented by: Admin: 05/27/21 05:59 Dose: 30 mg Documented by: MARIAN Metronidazole (Metronidazole 250 Mg Tab) 500 mg PO Q6H [facility] Last Admin: 05/28/21 13:32 Dose: 500 mg Documented by: Admin: 05/28/21 08:33 Dose: 500 mg Documented by: ARLETTE Ondansetron HCl (Ondansetron 4 Mg/2 Ml Sdv) 4 mg IVPUSH Q6H PRN PRN Reason: Nausea/Vomiting Oxycodone/Acetaminophen (Acetaminophen/Oxycodone 325-10 Mg Tab) 2 tab PO Q4H PRN PRN Reason: Abdominal Pain Last Admin: 05/28/21 12:26 Dose: 2 tab Documented by: Admin: 05/27/21 15:38 Dose: 2 tab Documented by: ARLETTE Polyethylene Glycol (Polyethylene Glycol 3350 Powder 17 Gm Packet) 17 gm PO DAILY [facility] Last Admin: 05/28/21 08:32 Dose: 17 gm Documented by: Admin: 05/27/21 08:37 Dose: 17 gm Documented by: ARLETTE Sodium Chloride (Sodium Chloride 0.9% 10 Ml Syringe) 10 ml FLUSH ASDIRECTED PRN PRN Reason: Keep Vein Open Last Admin: 05/26/21 11:40 Dose: 10 ml Documented by: PARDEEP Sodium Chloride (Sodium Chloride 0.9% 2.5 Ml Syringe) 2.5 ml FLUSH ASDIRECTED PRN PRN Reason: Keep Vein Open Last Admin: 05/26/21 11:40 Dose: 2.5 ml Documented by: [id number] Sodium Chloride (Sodium Chloride 0.9% 10 Ml Syringe) 10 ml FLUSH ASDIRECTED PRN PRN Reason: Keep Vein Open Sodium Chloride (Sodium Chloride 0.9% 2.5 Ml Syringe) 2.5 ml FLUSH ASDIRECTED PRN PRN Reason: Keep Vein Open Sodium Chloride (Sodium Chloride 0.9% 10 Ml Sdv) 10 ml IV ASDIRECTED PRN PRN Reason: IV Use - Plan Plan (Free Text/Narrative):: Pain: D/C flexeril. Percocet prn. IV dilaudid prn for severe pain only. Continue scheduled toradol to avoid narcotics. CV/Pulm: stable vs GI: Continue regular diet. Patient has not had return of bowel function yet, but denies nausea or vomiting. Discussed the possibility of ileus. ENcourage OOB activity and will start dulcolax tab BID, continue miralax daily. ID: Switch to cipro and flagyl. D/C IV zosyn. Px: Heparin. Heme: Stable.
[2021-05-29] MEDS: Ketorolac 30 MG/ML SDV IVPUSH SCH ×2 (00:25→06:08)
[2021-05-29] MEDS: Heparin Sodium 5,000 Units/ML Vial SUBCUT SCH ×3 (00:26→17:55)
[2021-05-29] MEDS: metroNIDAZOLE 250 MG Tab PO SCH (02:38)
--- NOTE | 2021-05-29 07:43 | PCM.DCSUM1 ---
Discharge Summary - Hospital Course Free Text/Narrative:: Patient is a 35 year old male who presented to the ER with perforated appendicitis. He was taken to the OR. The case was attempted laparoscopically but converted to open due to severe inflammation. The patient did well post operatively. His vitals remained stable. He was kept on IV antibiotics for 24 hours then switched to oral antibiotics. His diet was advanced without difficulty. On POD #2 he had return of bowel function but was complaining of nausea, heartburn and burping. He felt the oral antibiotics were contributing to his stomach upset. He was switched instead to Augmentin which he tolerated far better. He continued to have several more bowel movements and his distension improved. He had scheduled toradol and used very little narcotics. POD#4 he was stable and felt less distended. He was discharged home. - Discharge Data Discharge Date: 05/30/21 Discharge Disposition: Home, Self-Care 01 Condition: Stable - Referral to Home Health Primary Care Physician: PCP None - Discharge Diagnosis/Problem(s) (1) Appendicitis SNOMED Code(s): 80015025 ICD Code: K37 - UNSPECIFIED APPENDICITIS Status: Acute Qualifiers: Appendicitis type: acute appendicitis Acute appendicitis type: with localized peritonitis Appendicitis gangrene presence: with gangrene Appendicitis perforation presence: with perforation (2) Umbilical hernia SNOMED Code(s): 205666090 ICD Code: K42.9 - UMBILICAL HERNIA WITHOUT OBSTRUCTION OR GANGRENE Status: Acute - Patient Summary/Data Operative Procedure(s) Performed: Laparoscopic converted to open appendectomy Consults: Consultations 05/26/21 13:56 Consult to Physician [CONS] Stat - Patient Instructions Diet: Regular Diet as Tolerated Activity: No Lifting Over 20 Pounds (for six weeks after surgery ), Rest and Relax Today Driving: Do Not Drive (for the rest of the week or while taking narcotics ) Showering/Bathing: May Shower, No Tub Bathing/Swimming (for 2 weeks after surgery ) Notify Provider of: Fever, Increased Pain, Swelling and Redness, Drainage, Nause a and/or Vomiting - Discharge Plan *PRESCRIPTION DRUG MONITORING PROGRAM REVIEWED*: Yes *COPY OF PRESCRIPTION DRUG MONITORING REPORT IN PATIENT PILY: Yes Prescriptions/Med Rec: Amoxicillin/Clavulanate K [Augmentin 875-125 MG] 1 tab PO TID #5 tablet bisacodyL [Dulcolax] 5 mg PO Q12H #14 tablet Pantoprazole [ProTONIX] 40 mg PO DAILY #30 tab.cr Home Medications: Home Meds Multivitamin [Multivitamins] 1 tab PO DAILY 05/26/21 [History] Amoxicillin/Clavulanate K [Augmentin 875-125 MG] 1 tab PO TID #5 tablet 05/30/21 [Rx] Pantoprazole [ProTONIX] 40 mg PO DAILY #30 tab.cr 05/30/21 [Rx] bisacodyL [Dulcolax] 5 mg PO Q12H #14 tablet 05/30/21 [Rx] Patient Handouts: Amoxicillin; Clavulanic Acid Tablets, Appendicitis, Adult, Bisacodyl tablets and capsules, Acetaminophen; Oxycodone tablets, Open Appendectomy, Adult, Care After, Pantoprazole tablets Referrals: Sue Mott MD [Physician] - 06/03/21 1:30 pm (Please arrive 15 minutes early with your ID and insurance card; face coverings are required at this time.) - Discharge Summary/Plan Comment DC Time >30 min.: No - General Info Functional Status: Reports: Pain Controlled, Tolerating Diet, Ambulating, Urinating - Review of Systems General: Reports: No Symptoms HEENT: Reports: No Symptoms Pulmonary: Reports: No Symptoms Cardiovascular: Reports: No Symptoms Gastrointestinal: Reports: No Symptoms Genitourinary: Reports: No Symptoms Skin: Reports: No Symptoms - Patient Data Vitals - Most Recent: Last Vital Signs Temp 36.1 C 05/29/21 05:59 Pulse 74 05/29/21 05:59 Resp 16 05/29/21 05:59 BP 125/77 05/29/21 05:59 Pulse Ox 96 05/29/21 05:59 Weight - Most Recent: 99.79 kg I&O - Last 24 hours: Intake & Output 05/28/21 05/29/21 05/29/21 22:59 06:59 14:59 Intake Total 900 600 Output Total 90 0 Balance 810 600 Med Orders - Current: Current Medications Bisacodyl (Bisacodyl 5 Mg Tab) 5 mg PO Q12H [facility] Last Admin: 05/28/21 19:58 Dose: 5 mg Documented by: Ciprofloxacin (Ciprofloxacin 500 Mg Tab) 500 mg PO BID [facility] Last Admin: 05/28/21 20:00 Dose: 500 mg Documented by: Heparin Sodium (Porcine) (Heparin Sodium 5,000 Units/Ml Vial) 5,000 units SUBCUT Q8H [facility] Last Admin: 05/29/21 00:26 Dose: 5,000 units Documented by: Hydromorphone HCl (Hydromorphone 1 Mg/Ml Syringe) 0.5 mg IVPUSH Q1H PRN PRN Reason: Pain (severe 7-10) Last Admin: 05/26/21 21:25 Dose: 0.5 mg Documented by: Ketorolac Tromethamine (Ketorolac 30 Mg/Ml Sdv) 30 mg IVPUSH Q6H [facility] Last Admin: 05/29/21 06:08 Dose: 30 mg Documented by: Metronidazole (Metronidazole 250 Mg Tab) 500 mg PO Q6H [facility] Last Admin: 05/29/21 02:38 Dose: 500 mg Documented by: Ondansetron HCl (Ondansetron 4 Mg/2 Ml Sdv) 4 mg IVPUSH Q6H PRN PRN Reason: Nausea/Vomiting Oxycodone/Acetaminophen (Acetaminophen/Oxycodone 325-10 Mg Tab) 2 tab PO Q4H PRN PRN Reason: Abdominal Pain Last Admin: 05/28/21 12:26 Dose: 2 tab Documented by: Polyethylene Glycol (Polyethylene Glycol 3350 Powder 17 Gm Packet) 17 gm PO DAILY [facility] Last Admin: 05/28/21 08:32 Dose: 17 gm Documented by: Sodium Chloride (Sodium Chloride 0.9% 10 Ml Syringe) 10 ml FLUSH ASDIRECTED PRN PRN Reason: Keep Vein Open Last Admin: 05/26/21 11:40 Dose: 10 ml Documented by: Sodium Chloride (Sodium Chloride 0.9% 2.5 Ml Syringe) 2.5 ml FLUSH ASDIRECTED PRN PRN Reason: Keep Vein Open Last Admin: 05/26/21 11:40 Dose: 2.5 ml Documented by: Sodium Chloride (Sodium Chloride 0.9% 10 Ml Syringe) 10 ml FLUSH ASDIRECTED PRN PRN Reason: Keep Vein Open Sodium Chloride (Sodium Chloride 0.9% 2.5 Ml Syringe) 2.5 ml FLUSH ASDIRECTED PRN PRN Reason: Keep Vein Open Sodium Chloride (Sodium Chloride 0.9% 10 Ml Sdv) 10 ml IV ASDIRECTED PRN PRN Reason: IV Use Discontinued Medications Albumin Human (Albumin 25% 12.5 Gm/50 Ml Bag) 12.5 gm IV ONETIME ONE Stop: 05/26/21 13:51 Bupivacaine HCl (Bupivacaine 0.5% 10 Ml Sdv) Confirm Administered Dose 10 ml .ROUTE .STK-MED ONE Stop: 05/26/21 15:00 Cefazolin Sodium (Cefazolin 1 Gm Vial) Confirm Administered Dose 1 gm .ROUTE .STK-MED ONE Stop: 05/26/21 16:45 Cyclobenzaprine HCl (Cyclobenzaprine 5 Mg Tab) 5 mg PO Q8H [facility] Last Admin: 05/28/21 03:17 Dose: Not Given Documented by: Fentanyl (Fentanyl 250 Mcg/5 Ml Sdv) Confirm Administered Dose 250 mcg .ROUTE .STK-MED ONE Stop: 05/26/21 15:01 Fentanyl (Fentanyl 100 Mcg/2 Ml Sdv) 50 mcg IVPUSH Q5M PRN PRN Reason: Pain Glycopyrrolate (Glycopyrrolate 0.2 Mg/Ml Sdv) Confirm Administered Dose 0.2 mg .ROUTE .STK-MED ONE Stop: 05/26/21 15:02 Hydromorphone HCl (Hydromorphone 2 Mg/Ml Syringe) Confirm Administered Dose 2 mg .ROUTE .STK-MED ONE Stop: 05/26/21 16:42 Piperacillin Sod/Tazobactam (Sod 3.375 gm/ Sodium Chloride) 50 mls @ 100 mls/hr IV ONETIME ONE Stop: 05/26/21 14:22 Last Admin: 05/26/21 14:02 Dose: 100 mls/hr Documented by: Sodium Chloride (Normal Saline) 1,000 mls @ 999 mls/hr IV STAT ONE Stop: 05/26/21 14:54 Last Admin: 05/26/21 14:17 Dose: Not Given Documented by: Lactated Ringer's (Ringers, Lactated) 1,000 mls @ 999 mls/hr IV .BOLUS ONE Stop: 05/26/21 15:00 Last Admin: 05/26/21 14:02 Dose: 999 mls/hr Documented by: Acetaminophen 1,000 mg/ Premix 100 mls @ 400 mls/hr IV Q6H PRN PRN Reason: Pain Acetaminophen (Ofirmev 1000 Mg/100 Ml) Confirm Administered Dose 100 mls @ as directed .ROUTE .STK-MED ONE Stop: 05/26/21 18:36 Sodium Chloride (Normal Saline) 1,000 mls @ 125 mls/hr IV ASDIRECTED [facility] Last Admin: 05/27/21 06:04 Dose: 125 mls/hr Documented by: Piperacillin Sod/Tazobactam (Sod 3.375 gm/ Sodium Chloride) 50 mls @ 100 mls/hr IV Q6H [facility] Last Admin: 05/28/21 03:02 Dose: 100 mls/hr Documented by: Acetaminophen 1,000 mg/ Premix 100 mls @ 400 mls/hr IV Q6H [facility] Last Admin: 05/27/21 03:07 Dose: Not Given Documented by: Acetaminophen 1,000 mg/ Premix 100 mls @ 400 mls/hr IV Q6H [facility] Last Admin: 05/27/21 06:05 Dose: 400 mls/hr Documented by: Iopamidol (Iopamidol 755 Mg/Ml 500 Ml Multipack Bottle) 100 ml IVPUSH ONETIME ONE Stop: 05/26/21 12:55 Last Admin: 05/26/21 12:55 Dose: 100 ml Documented by: Ketorolac Tromethamine (Ketorolac 30 Mg/Ml Sdv) Confirm Administered Dose 30 mg .ROUTE .STK-MED ONE Stop: 05/26/21 15:02 Ketorolac Tromethamine (Ketorolac 30 Mg/Ml Sdv) 30 mg IVPUSH Q6H [facility] Stop: 05/31/21 20:01 Last Admin: 05/27/21 03:07 Dose: Not Given Documented by: Lidocaine (Lidocaine 2% 5 Ml Sdv) Confirm Administered Dose 5 ml .ROUTE .STK-MED ONE Stop: 05/26/21 15:02 Midazolam HCl (Midazolam 1 Mg/Ml 2 Ml Sdv) Confirm Administered Dose 2 mg .ROUTE .STK-MED ONE Stop: 05/26/21 15:01 Octyl Cyanoacrylate (Octyl 2-Cyanoacrylate 1 Tube) Confirm Administered Dose 0 applic .ROUTE .STK-MED ONE Stop: 05/26/21 14:59 Ondansetron HCl (Ondansetron 4 Mg/2 Ml Sdv) 4 mg IVPUSH ONETIME ONE Stop: 05/26/21 14:10 Last Admin: 05/26/21 14:22 Dose: 4 mg Documented by: Ondansetron HCl (Ondansetron 4 Mg/2 Ml Sdv) Confirm Administered Dose 4 mg .ROUTE .STK-MED ONE Stop: 05/26/21 14:11 Last Admin: 05/26/21 14:16 Dose: Not Given Documented by: Ondansetron HCl (Ondansetron 4 Mg/2 Ml Sdv) Confirm Administered Dose 4 mg .ROUTE .STK-MED ONE Stop: 05/26/21 15:02 Oxycodone HCl (Oxycodone 5 Mg Tab) 10 mg PO Q4H PRN PRN Reason: Pain (moderate 4-6) Oxycodone/Acetaminophen (Acetaminophen/Oxycodone 325-5 Mg Tab) 2 tab PO Q4H PRN PRN Reason: Pain (moderate 4-6) Propofol (Propofol 200 Mg/20 Ml Sdv) Confirm Administered Dose 200 mg .ROUTE .STK-MED ONE Stop: 05/26/21 15:01 Rocuronium [place] (Rocuronium [place] 50 Mg/5 Ml Syringe) Confirm Administered Dose 50 mg .ROUTE .STK-MED ONE Stop: 05/26/21 15:02 Rocuronium [place] (Rocuronium [place] 50 Mg/5 Ml Syringe) Confirm Administered Dose 50 mg .ROUTE .STK-MED ONE Stop: 05/26/21 16:18 Sugammadex Sodium (Sugammadex Sodium 200 Mg/2 Ml Vial) Confirm Administered Dose 200 mg .ROUTE .STK-MED ONE Stop: 05/26/21 15:02 Sugammadex Sodium (Sugammadex Sodium 200 Mg/2 Ml Vial) Confirm Administered Dose 200 mg .ROUTE .STK-MED ONE Stop: 05/26/21 17:40 - Exam Quality Assessment: Reports: Supplemental Oxygen General: Reports: Alert, Oriented HEENT: Reports: Pupils Equal, Pupils Reactive Lungs: Reports: Normal Respiratory Effort Cardiovascular: Reports: Regular Rate GI/Abdominal Exam: Soft, Non-Tender, Distended (mild) Back Exam: Reports: Normal Inspection
[2021-05-29] MEDS ORDERED: Calcium Carbonate 500 MG Tab.Chew PO PRN (07:55)
[2021-05-29] MEDS: Bisacodyl 5 MG Tab PO SCH ×2 (08:37→21:05)
[2021-05-29] MEDS: Amoxicillin/Clavulanate K 875-125 MG Tab PO SCH ×3 (08:37→22:02)
[2021-05-29] MEDS: Polyethylene Glycol 3350 Powder 17 GM Packet PO SCH (08:37)
[2021-05-29] MEDS: Pantoprazole 40 MG Tab.CR PO SCH (08:37)
[2021-05-29] MEDS: Acetaminophen/oxyCODONE 325-10 MG Tab PO PRN ×2 (12:43→22:18)
--- NOTE | 2021-05-29 18:59 | PCM.SURGPN ---
- General Info Date of Service: 05/29/21 Date of Surgery/Procedure: 05/26/21 POD#: 3 Functional Status: Reports: Pain Controlled, Tolerating Diet, Ambulating - Review of Systems General: Reports: No Symptoms HEENT: Reports: No Symptoms Pulmonary: Reports: No Symptoms Cardiovascular: Reports: No Symptoms Gastrointestinal: Reports: Abdominal Pain, Decreased Appetite, Nausea - Patient Data Vitals - Most Recent: Last Vital Signs Temp 36.9 C 05/29/21 17:59 Pulse 72 05/29/21 17:59 Resp 14 05/29/21 17:59 BP 117/73 05/29/21 17:59 Pulse Ox 97 05/29/21 17:59 Weight - Most Recent: 99.79 kg I&O - Last 24 Hours: Intake & Output 05/29/21 05/29/21 05/29/21 06:59 14:59 22:59 Intake Total 600 840 Output Total 0 Balance 600 840 Med Orders - Current: Current Medications Amoxicillin/Clavulanate Potassium (Amoxicillin/Clavulanate K 875-125 Mg Tab) 1 tab PO TID [facility] Last Admin: 05/29/21 15:42 Dose: 1 tab Documented by: Bisacodyl (Bisacodyl 5 Mg Tab) 5 mg PO Q12H [facility] Last Admin: 05/29/21 08:37 Dose: 5 mg Documented by: Calcium Carbonate/Glycine (Calcium Carbonate 500 Mg Tab.Chew) 500 mg PO Q2HR PRN PRN Reason: Indigestion Last Admin: 05/29/21 08:37 Dose: 500 mg Documented by: Heparin Sodium (Porcine) (Heparin Sodium 5,000 Units/Ml Vial) 5,000 units SUBCUT Q8H [facility] Last Admin: 05/29/21 17:55 Dose: 5,000 units Documented by: Hydromorphone HCl (Hydromorphone 1 Mg/Ml Syringe) 0.5 mg IVPUSH Q1H PRN PRN Reason: Pain (severe 7-10) Last Admin: 05/26/21 21:25 Dose: 0.5 mg Documented by: Ondansetron HCl (Ondansetron 4 Mg/2 Ml Sdv) 4 mg IVPUSH Q6H PRN PRN Reason: Nausea/Vomiting Oxycodone/Acetaminophen (Acetaminophen/Oxycodone 325-10 Mg Tab) 2 tab PO Q4H PRN PRN Reason: Abdominal Pain Last Admin: 05/29/21 12:43 Dose: 2 tab Documented by: Pantoprazole Sodium (Pantoprazole 40 Mg Tab.Cr) 40 mg PO DAILY [facility] Last Admin: 05/29/21 08:37 Dose: 40 mg Documented by: Polyethylene Glycol (Polyethylene Glycol 3350 Powder 17 Gm Packet) 17 gm PO DAILY [facility] Last Admin: 05/29/21 08:37 Dose: 17 gm Documented by: Sodium Chloride (Sodium Chloride 0.9% 10 Ml Syringe) 10 ml FLUSH ASDIRECTED PRN PRN Reason: Keep Vein Open Last Admin: 05/26/21 11:40 Dose: 10 ml Documented by: Sodium Chloride (Sodium Chloride 0.9% 2.5 Ml Syringe) 2.5 ml FLUSH ASDIRECTED PRN PRN Reason: Keep Vein Open Last Admin: 05/26/21 11:40 Dose: 2.5 ml Documented by: Sodium Chloride (Sodium Chloride 0.9% 10 Ml Syringe) 10 ml FLUSH ASDIRECTED PRN PRN Reason: Keep Vein Open Sodium Chloride (Sodium Chloride 0.9% 2.5 Ml Syringe) 2.5 ml FLUSH ASDIRECTED PRN PRN Reason: Keep Vein Open Sodium Chloride (Sodium Chloride 0.9% 10 Ml Sdv) 10 ml IV ASDIRECTED PRN PRN Reason: IV Use Discontinued Medications Albumin Human (Albumin 25% 12.5 Gm/50 Ml Bag) 12.5 gm IV ONETIME ONE Stop: 05/26/21 13:51 Bupivacaine HCl (Bupivacaine 0.5% 10 Ml Sdv) Confirm Administered Dose 10 ml .ROUTE .STK-MED ONE Stop: 05/26/21 15:00 Cefazolin Sodium (Cefazolin 1 Gm Vial) Confirm Administered Dose 1 gm .ROUTE .STK-MED ONE Stop: 05/26/21 16:45 Ciprofloxacin (Ciprofloxacin 500 Mg Tab) 500 mg PO BID [facility] Last Admin: 05/28/21 20:00 Dose: 500 mg Documented by: Cyclobenzaprine HCl (Cyclobenzaprine 5 Mg Tab) 5 mg PO Q8H [facility] Last Admin: 05/28/21 03:17 Dose: Not Given Documented by: Fentanyl (Fentanyl 250 Mcg/5 Ml Sdv) Confirm Administered Dose 250 mcg .ROUTE .STK-MED ONE Stop: 05/26/21 15:01 Fentanyl (Fentanyl 100 Mcg/2 Ml Sdv) 50 mcg IVPUSH Q5M PRN PRN Reason: Pain Glycopyrrolate (Glycopyrrolate 0.2 Mg/Ml Sdv) Confirm Administered Dose 0.2 mg .ROUTE .STK-MED ONE Stop: 05/26/21 15:02 Hydromorphone HCl (Hydromorphone 2 Mg/Ml Syringe) Confirm Administered Dose 2 mg .ROUTE .STK-MED ONE Stop: 05/26/21 16:42 Piperacillin Sod/Tazobactam (Sod 3.375 gm/ Sodium Chloride) 50 mls @ 100 mls/hr IV ONETIME ONE Stop: 05/26/21 14:22 Last Admin: 05/26/21 14:02 Dose: 100 mls/hr Documented by: Sodium Chloride (Normal Saline) 1,000 mls @ 999 mls/hr IV STAT ONE Stop: 05/26/21 14:54 Last Admin: 05/26/21 14:17 Dose: Not Given Documented by: Lactated Ringer's (Ringers, Lactated) 1,000 mls @ 999 mls/hr IV .BOLUS ONE Stop: 05/26/21 15:00 Last Admin: 05/26/21 14:02 Dose: 999 mls/hr Documented by: Acetaminophen 1,000 mg/ Premix 100 mls @ 400 mls/hr IV Q6H PRN PRN Reason: Pain Acetaminophen (Ofirmev 1000 Mg/100 Ml) Confirm Administered Dose 100 mls @ as directed .ROUTE .STK-MED ONE Stop: 05/26/21 18:36 Sodium Chloride (Normal Saline) 1,000 mls @ 125 mls/hr IV ASDIRECTED [facility] Last Admin: 05/27/21 06:04 Dose: 125 mls/hr Documented by: Piperacillin Sod/Tazobactam (Sod 3.375 gm/ Sodium Chloride) 50 mls @ 100 mls/hr IV Q6H [facility] Last Admin: 05/28/21 03:02 Dose: 100 mls/hr Documented by: Acetaminophen 1,000 mg/ Premix 100 mls @ 400 mls/hr IV Q6H [facility] Last Admin: 05/27/21 03:07 Dose: Not Given Documented by: Acetaminophen 1,000 mg/ Premix 100 mls @ 400 mls/hr IV Q6H [facility] Last Admin: 05/27/21 06:05 Dose: 400 mls/hr Documented by: Iopamidol (Iopamidol 755 Mg/Ml 500 Ml Multipack Bottle) 100 ml IVPUSH ONETIME ONE Stop: 05/26/21 12:55 Last Admin: 05/26/21 12:55 Dose: 100 ml Documented by: Ketorolac Tromethamine (Ketorolac 30 Mg/Ml Sdv) Confirm Administered Dose 30 mg .ROUTE .STK-MED ONE Stop: 05/26/21 15:02 Ketorolac Tromethamine (Ketorolac 30 Mg/Ml Sdv) 30 mg IVPUSH Q6H [facility] Stop: 05/31/21 20:01 Last Admin: 05/27/21 03:07 Dose: Not Given Documented by: Ketorolac Tromethamine (Ketorolac 30 Mg/Ml Sdv) 30 mg IVPUSH Q6H [facility] Last Admin: 05/29/21 06:08 Dose: 30 mg Documented by: Lidocaine (Lidocaine 2% 5 Ml Sdv) Confirm Administered Dose 5 ml .ROUTE .STK-MED ONE Stop: 05/26/21 15:02 Metronidazole (Metronidazole 250 Mg Tab) 500 mg PO Q6H [facility] Last Admin: 05/29/21 02:38 Dose: 500 mg Documented by: Midazolam HCl (Midazolam 1 Mg/Ml 2 Ml Sdv) Confirm Administered Dose 2 mg .ROUTE .STK-MED ONE Stop: 05/26/21 15:01 Octyl Cyanoacrylate (Octyl 2-Cyanoacrylate 1 Tube) Confirm Administered Dose 0 applic .ROUTE .STK-MED ONE Stop: 05/26/21 14:59 Ondansetron HCl (Ondansetron 4 Mg/2 Ml Sdv) 4 mg IVPUSH ONETIME ONE Stop: 05/26/21 14:10 Last Admin: 05/26/21 14:22 Dose: 4 mg Documented by: Ondansetron HCl (Ondansetron 4 Mg/2 Ml Sdv) Confirm Administered Dose 4 mg .ROUTE .STK-MED ONE Stop: 05/26/21 14:11 Last Admin: 05/26/21 14:16 Dose: Not Given Documented by: Ondansetron HCl (Ondansetron 4 Mg/2 Ml Sdv) Confirm Administered Dose 4 mg .ROUTE .STK-MED ONE Stop: 05/26/21 15:02 Oxycodone HCl (Oxycodone 5 Mg Tab) 10 mg PO Q4H PRN PRN Reason: Pain (moderate 4-6) Oxycodone/Acetaminophen (Acetaminophen/Oxycodone 325-5 Mg Tab) 2 tab PO Q4H PRN PRN Reason: Pain (moderate 4-6) Propofol (Propofol 200 Mg/20 Ml Sdv) Confirm Administered Dose 200 mg .ROUTE .STK-MED ONE Stop: 05/26/21 15:01 Rocuronium Upton (Rocuronium [place]pton 50 Mg/5 Ml Syringe) Confirm Administered Dose 50 mg .ROUTE .STK-MED ONE Stop: 05/26/21 15:02 Rocuronium [place] (Rocuronium [place] 50 Mg/5 Ml Syringe) Confirm Administered Dose 50 mg .ROUTE .STK-MED ONE Stop: 05/26/21 16:18 Sugammadex Sodium (Sugammadex Sodium 200 Mg/2 Ml Vial) Confirm Administered Dose 200 mg .ROUTE .STK-MED ONE Stop: 05/26/21 15:02 Sugammadex Sodium (Sugammadex Sodium 200 Mg/2 Ml Vial) Confirm Administered Dose 200 mg .ROUTE .STK-MED ONE Stop: 05/26/21 17:40 - Exam General: Alert, Oriented, Cooperative HEENT: Pupils Equal, Pupils Reactive Lungs: Normal Respiratory Effort Cardiovascular: Regular Rate GI/Abdominal Exam: Soft, Distended Skin: Warm, Dry, Intact Sepsis Event Note - Evaluation Sepsis Screening Result: No Definite Risk - Focused Exam Vital Signs: Vital Signs Temp Pulse Resp BP Pulse Ox 05/29/21 17:59 36.9 C 72 14 117/73 97 05/29/21 15:00 36.6 C 74 14 116/79 97 05/29/21 11:48 36.2 C 65 20 125/78 98 05/29/21 08:00 36.1 C 67 22 H 118/72 97 - Problem List & Annotations (1) Appendicitis SNOMED Code(s): 21309224 Code(s): K37 - UNSPECIFIED APPENDICITIS Status: Acute Current Visit: Yes Qualifiers: Appendicitis type: acute appendicitis Acute appendicitis type: with localized peritonitis Appendicitis gangrene presence: with gangrene Appendicitis perforation presence: with perforation (2) Umbilical hernia SNOMED Code(s): 473881704 Code(s): K42.9 - UMBILICAL HERNIA WITHOUT OBSTRUCTION OR GANGRENE Status: Acute Current Visit: Yes - Problem List Review Problem List Initiated/Reviewed/Updated: Yes - My Orders Last 24 Hours: Active Orders 24 hr Category Date Time Status Amoxicillin/Clavulanate K [Augmentin 875 MG/125 MG] Med 05/29/21 09:00 Active 1 tab PO TID Calcium Carbonate [Tums] Med 05/29/21 07:55 Active 500 mg PO Q2HR PRN Pantoprazole [ProTONIX] Med 05/29/21 09:00 Active 40 mg PO DAILY Medication Orders Amoxicillin/Clavulanate Potassium (Amoxicillin/Clavulanate K 875-125 Mg Tab) 1 tab PO TID [facility] Last Admin: 05/29/21 15:42 Dose: 1 tab Documented by: Admin: 05/29/21 08:37 Dose: 1 tab Documented by: LATIA Bisacodyl (Bisacodyl 5 Mg Tab) 5 mg PO Q12H [facility] Last Admin: 05/29/21 08:37 Dose: 5 mg Documented by: Admin: 05/28/21 19:58 Dose: 5 mg Documented by: Admin: 05/28/21 08:43 Dose: 5 mg Documented by: ARLETTE Calcium Carbonate/Glycine (Calcium Carbonate 500 Mg Tab.Chew) 500 mg PO Q2HR PRN PRN Reason: Indigestion Last Admin: 05/29/21 08:37 Dose: 500 mg Documented by: LATIA Heparin Sodium (Porcine) (Heparin Sodium 5,000 Units/Ml Vial) 5,000 units SUBCUT Q8H [facility] Last Admin: 05/29/21 17:55 Dose: 5,000 units Documented by: Admin: 05/29/21 08:36 Dose: 5,000 units Documented by: Admin: 05/29/21 00:26 Dose: 5,000 units Documented by: Admin: 05/28/21 17:30 Dose: 5,000 units Documented by: Admin: 05/28/21 08:32 Dose: 5,000 units Documented by: Admin: 05/28/21 00:29 Dose: 5,000 units Documented by: Admin: 05/27/21 18:27 Dose: 5,000 units Documented by: Admin: 05/27/21 08:36 Dose: 5,000 units Documented by: ARLETTE Hydromorphone HCl (Hydromorphone 1 Mg/Ml Syringe) 0.5 mg IVPUSH Q1H PRN PRN Reason: Pain (severe 7-10) Last Admin: 05/26/21 21:25 Dose: 0.5 mg Documented by: MARIAN Ondansetron HCl (Ondansetron 4 Mg/2 Ml Sdv) 4 mg IVPUSH Q6H PRN PRN Reason: Nausea/Vomiting Oxycodone/Acetaminophen (Acetaminophen/Oxycodone 325-10 Mg Tab) 2 tab PO Q4H PRN PRN Reason: Abdominal Pain Last Admin: 05/29/21 12:43 Dose: 2 tab Documented by: Admin: 05/28/21 12:26 Dose: 2 tab Documented by: Admin: 05/27/21 15:38 Dose: 2 tab Documented by: ARLETTE Pantoprazole Sodium (Pantoprazole 40 Mg Tab.Cr) 40 mg PO DAILY [facility] Last Admin: 05/29/21 08:37 Dose: 40 mg Documented by: LATIA Polyethylene Glycol (Polyethylene Glycol 3350 Powder 17 Gm Packet) 17 gm PO DAILY [facility] Last Admin: 05/29/21 08:37 Dose: 17 gm Documented by: Admin: 05/28/21 08:32 Dose: 17 gm Documented by: Admin: 05/27/21 08:37 Dose: 17 gm Documented by: ARLETTE Sodium Chloride (Sodium Chloride 0.9% 10 Ml Syringe) 10 ml FLUSH ASDIRECTED PRN PRN Reason: Keep Vein Open Last Admin: 05/26/21 11:40 Dose: 10 ml Documented by: [email or web address] Sodium Chloride (Sodium Chloride 0.9% 2.5 Ml Syringe) 2.5 ml FLUSH ASDIRECTED PRN PRN Reason: Keep Vein Open Last Admin: 05/26/21 11:40 Dose: 2.5 ml Documented by: [id number] Sodium Chloride (Sodium Chloride 0.9% 10 Ml Syringe) 10 ml FLUSH ASDIRECTED PRN PRN Reason: Keep Vein Open Sodium Chloride (Sodium Chloride 0.9% 2.5 Ml Syringe) 2.5 ml FLUSH ASDIRECTED PRN PRN Reason: Keep Vein Open Sodium Chloride (Sodium Chloride 0.9% 10 Ml Sdv) 10 ml IV ASDIRECTED PRN PRN Reason: IV Use - Plan Plan (Free Text/Narrative):: I saw the patient this am and he was complaining of GI upset with antibiotic administration as well as increased heartburn and nausea. I switched his antibiotics to Augmentin and his GI upset resolved. He was given pantoprazole 40mg daily and tums prn. I rechecked on him this evening. He has had 3 BMs. He feels his distension is improving. He no longer feels nauseated and is tolerating a regular diet again. Will monitor overnight. If stable home in the am.
[2021-05-30] MEDS: Heparin Sodium 5,000 Units/ML Vial SUBCUT SCH ×2 (00:58→10:14)
[2021-05-30] MEDS: Amoxicillin/Clavulanate K 875-125 MG Tab PO SCH (06:16)
[2021-05-30] MEDS: Pantoprazole 40 MG Tab.CR PO SCH (08:37)
[2021-05-30] MEDS: Bisacodyl 5 MG Tab PO SCH (10:15)
[2021-05-30] MEDS: Polyethylene Glycol 3350 Powder 17 GM Packet PO SCH (10:15)
[2021-05-30] MEDS: Acetaminophen/oxyCODONE 325-10 MG Tab PO PRN (10:20)
[2021-05-30 10:22] VITALS: BP 117/63; PULSE 72
== END 2021-05-30 11:10 | disposition home or self-care (01) | DRG 233 ==
LOC: MW.ED 10:49 → MW.SDS 14:41 → MW.MS 17:06
PROVIDERS: ADMIT Surgery; ATTEND Surgery
PROC: 0DTJ0ZZ Resection of Appendix, Open Approach (ICD-10-PCS; principal; 2021-05-26)
PROC: 0WJG4ZZ Inspection of Peritoneal Cavity, Percutaneous Endoscopic Approach (ICD-10-PCS; 2021-05-26)
DX: K35.33 Acute appendicitis with perforation, localized peritonitis, and gangrene, with abscess (principal); K42.9 Umbilical hernia without obstruction or gangrene; Z20.822 Contact with and (suspected) exposure to COVID-19
CPT/HCPCS: 36415; 74177; 74177-26; 80048; 80053; 81003; 83690; 85025; 85027; 93005; 99284; A9270-GY; C1776; J0131; J0690; J1170; J1644; J1885; J2250; J2405; J2543; J2704; J3010; J3490; J7030; J7120; Q9967; U0002